=== PATIENT | male | born 1965 | race Caucasian/White ===

== ENCOUNTER 2023-03-18 07:32 | Inpatient (IN) | payer OTHER, SELFPAY ==
[2023-03-18] VITALS (54 sets, daily range): BP systolic 152–251; BP diastolic 93–164; PULSE 72–95; RESP 10–23; TEMP 36.9–37.4; O2SAT 92–100; BMI 24.7
--- NOTE | 2023-03-18 | ECHO_ITS ---
Patient Info Name: Anthony Bain Age: 57 years : 1965 Gender: Male Ht: 72 in Wt: 195 lbs BSA: 2.13 m2 HR: 87 bpm BP: 170 / 112 mmHg Technical Quality: Fair Exam Date: 03/18/2023 11:58 AM Exam Location: [facility] Pulmonary Exam Room: ICU7 Patient Status: Outpatient Admit Date: 03/18/2023 Staff Ordering Physician: Delonte Briseno MD Newspaper Vendor: Anabell Ca RDCS Attending Provider: Carlos Alston MD Exam Type: CA echo doppler color flow Study Info Indications - HYPERTENSIVE URGENCY Complete two-dimensional, color flow and Doppler transthoracic echocardiogram is performed. Summary 1. Complete two-dimensional, color flow and Doppler transthoracic echocardiogram is performed. 2. Left ventricular chamber dimension is normal. 3. Left ventricular systolic function is normal, estimated at 65-70%. 4. There is mild concentric increased left ventricular wall thickness. 5. The left ventricular diastolic function is grade I diastolic dysfunction. 6. E/e' 18 is elevated. 7. There is mild aortic valve sclerosis. 8. There is trace tricuspid valve regurgitation. 9. No pulmonary hypertension, estimated pulmonary arterial systolic pressure is 29 mmHg. 10. There is trace pulmonic regurgitation. Left Ventricle E/e' 18 is elevated. Left ventricular chamber dimension is normal. Left ventricular systolic function is normal, estimated at 65-70%. There is mild concentric increased left ventricular wall thickness. The left ventricular diastolic function is grade I diastolic dysfunction. Right Ventricle Right ventricular chamber dimension is normal. Right ventricular systolic function is normal. Left Atria Left atrial chamber dimension is normal. Right Atria Right atrial chamber dimension is normal. Aortic Valve The aortic valve is trileaflet. There is mild aortic valve sclerosis. There is no aortic valve stenosis. There is no aortic valve regurgitation. Pulmonic Valve There is trace pulmonic regurgitation. Mitral Valve There is no mitral valve stenosis. There is no mitral valve regurgitation. Tricuspid Valve There is trace tricuspid valve regurgitation. No pulmonary hypertension, estimated pulmonary arterial systolic pressure is 29 mmHg. Pericardium/Pleural There is no pericardial effusion. Inferior Vena Cava Normal inferior vena cava with >50% collapse upon inspiration consistent with normal right atrial pressure, 5 mmHg. Aorta The aortic root size at the sinus of Valsalva is normal. Left Ventricular Outflow Tract Name Value Normal LVOT 2D LVOT Diameter 2.2 cm LVOT Doppler LVOT Peak Gradient 8 mmHg LVOT Mean Gradient 4 mmHg LVOT VTI 22 cm LVOT VTI/AV VTI Ratio 0.7 LVOT Stroke Volume 81 ml LVOT CO 21.8 l/min LVOT CI 10.2 l/min/m2 Pulmonic Valve Name Value Normal PV Doppler
--- NOTE | ~2023-03-18 | CT_ITS ---
CT head without contrast Indication: Hypertension Technique: Serial scans were obtained through the brain without the administration of contrast. Dose reduction technique was used on this scan by utilizing automated exposure control and iterative recon struction technique. The dose-length product (DLP) was 681.00 mGy-cm. Findings: There is no evidence of intracranial hemorrhage, mass lesion, or acute infarct. The ventri cles and subarachnoid spaces are dilated, consistent with minimal atrophy. Low attenuation regions a re seen within the periventricular white matter bilaterally, likely representing changes from chronic microvascular ischemic disease. There is no evidence of edema, mass effect or midline shift. The v isualized paranasal sinuses and mastoid air cells are clear. Impression: No intracranial hemorrhage, mass, or acute infarct. Atrophy and chronic white matter changes, as above. Reviewed, dictated and finalized at location . Impression: No intracranial hemorrhage, mass, or acute infarct. Atrophy and chronic white matter changes, as above.
--- NOTE | ~2023-03-18 | US_ITS ---
EXAMINATION: US retroperitoneal duplex ltd DATE: 03/21/2023 15:06 INDICATION: Uncontrolled hypertension. TECHNIQUE: Multiple grayscale, color Doppler, and pulsed Doppler images of the kidneys and renal young ann were obtained. COMPARISON: CT abdomen and pelvis 04/29/2011 FINDINGS: The aorta peak systolic velocity is 85 cm/s. The right renal artery peak systolic velocity is 77 cm/s in the proximal segment, 90 cm/s in the mid segment, and 88 cm/s in the distal segment. The left rodrigo al artery peak systolic velocity is 75 cm/s in the proximal segment, 77 cm/s in the mid segment, and 40 cm/s in the distal segment. IMPRESSION: 1. No Doppler evidence of renal artery stenosis. Reviewed, dictated and finalized at location A.
--- NOTE | ~2023-03-18 | CT_ITS ---
EXAMINATION: CT brain wo con DATE: 03/20/2023 07:16 INDICATION: Code stroke TECHNIQUE: Computed tomography (CT) of the head was performed without intravenous contrast. Sagittal and coronal reconstructions were performed. The mA was adjusted according to patient size. Iterative reconstruction technique was employed. The dose-length product was 681.00 mGy-cm. COMPARISON: head CT dated 03/19/2023 FINDINGS: Continued evolution region of low attenuation cytotoxic edema along the left single gyrus consistent with acute infarct. No acute intracranial hemorrhage or abnormal extra axial fluid collection. There is additional moderate scattered white matter hypoattenuation consistent with chronic small vessel is chemic disease. Ventricles are normal and symmetric. No mass/mass effect. The orbits, paranasal sinus es and mastoid air cells are normal. IMPRESSION: 1. Continued evolution of an acute infarct in the left singlet gyrus. No other acute intracranial pro cess. Reviewed, dictated and finalized at location A. IMPRESSION: 1. Continued evolution of an acute infarct in the left singlet gyrus. No other acute intracranial process.
--- NOTE | ~2023-03-18 | MR_ITS ---
EXAMINATION: MR brain/brain stem wo con DATE: 03/18/2023 15:24 INDICATION: Cerebral vascular accident. TECHNIQUE: Magnetic resonance imaging (MRI) of the brain and brainstem was performed without intraven ous contrast. COMPARISON: Head CT 03/18/2023 FINDINGS: There is an acute infarct involving the left cingulate gyrus. There is scattered foci of ol d microhemorrhage in the cerebrum including the deep tran nuclei. There are scattered areas of nonspe cific increased T2-weighted signal intensity in the cerebral and cerebellar white matter. There is no abnormal mass lesion. The ventricles are normal in size. The orbits are normal. The mastoid air cell s are normal. The paranasal sinuses are clear. IMPRESSION: 1. Acute infarct involving the left cingulate gyrus. 2. Extensive cerebral white matter disease, mild cerebellar white matter disease, and scattered foci of old microhemorrhage in the brain, consistent with chronic hypertensive encephalopathy. Reviewed, dictated and finalized at location E. IMPRESSION: 1. Acute infarct involving the left cingulate gyrus. 2. Extensive cerebral white matter disease, mild cerebellar white matter diseas e, and scattered foci of old microhemorrhage in the brain, consistent with photographer's model neto hypertensive encephalopathy.
--- NOTE | ~2023-03-18 | XR_ITS ---
EXAMINATION: XR chest 1V portable INDICATION: Hypertension TECHNIQUE: Portable AP chest at 0807 hours COMPARISON: None available FINDINGS: The lungs are free of acute opacities. No pleural effusion or pneumothorax. The cardiomedia stinal silhouette is normal. IMPRESSION: 1. No acute cardiopulmonary abnormality. Reviewed, dictated and finalized at location B.
--- NOTE | ~2023-03-18 | US_ITS ---
EXAMINATION: US carotid duplex BI DATE: 03/19/2023 09:29 INDICATION: Stroke. Vertigo. TECHNIQUE: Grayscale, color Doppler, and pulsed Doppler images of the cervical carotid arteries were obtained. The degree of vessel stenosis is placed in one of the following categories: normal, <50%, 5 0-69%, >=70% but less than near-occlusion, near-occlusion, or total occlusion. Note that percent sten osis relative to normal distal artery lumen diameter is indirectly measured from velocity measurement s as described by Margarito, et al. Radiology 2003; 229:340-346. COMPARISON: None. FINDINGS: RIGHT: The right common carotid artery (CCA) peak systolic velocity (PSV) is 97 cm/s. The right internal car otid artery (ICA) PSV is 60 cm/s. The right ICA end-diastolic velocity (EDV) is 20 cm/s. The right IC A/CCA PSV ratio is 0.6. Grayscale and color Doppler images yield an estimate of <50% diameter reducti on from plaque in the ICA. The external carotid artery (ECA) PSV is 74 cm/s. There is antegrade flow in the right vertebral artery. LEFT: The left CCA PSV is 122 cm/s. The left ICA PSV is 70 cm/s. The left ICA EDV is 27 cm/s. The left ICA/ CCA PSV ratio is 0.6. Grayscale and color Doppler images yield an estimate of <50% diameter reduction from plaque in the ICA. The ECA PSV is 90 cm/s. There is antegrade flow in the left vertebral artery . IMPRESSION: 1. <50% stenosis in the right internal carotid artery. 2. <50% stenosis in the left internal carotid artery. Reviewed, dictated and finalized at location A.
--- NOTE | ~2023-03-18 | CT_ITS ---
EXAMINATION: CTA BRAIN/CAROTID DATE: 03/19/2023 15:52 INDICATION: Acute stroke TECHNIQUE: Computed tomographic angiography (CTA) of the head and neck was performed with 100 mL Omni paque-350 intravenous contrast. Multiplanar reconstructions and maximum intensity projection 3D-recon structions of the carotid arteries and of the intracranial arteries were created by the technologist on a separate workstation. Precontrast CT of the head was also obtained. Automated exposure control and iterative reconstruction technique were employed.The dose-length product was 1816.95 mGy-cm. COMPARISON: Head CT and brain MR dated 03/18/2023 FINDINGS: Head: Again seen is a region of cytotoxic edema associated with the previous noted region of restricted dif fusion at the left single gyrus consistent with acute infarct. No acute intracranial hemorrhage or ab normal extra axial fluid collection. There is additional moderate scattered white matter hypoattenuat ion consistent with chronic small vessel ischemic disease. Ventricles are normal and symmetric. No ma ss/mass effect. No abnormally enhancing brain lesions on postcontrast imaging. The orbits, paranasal sinuses and mastoid air cells are normal. Intracranial arteries No hemodynamically significant stenosis in the basilar and internal carotid arteries. Vertebral arter ies are codominant. Both A1 and P1 segments are patent. There is scattered mild atherosclerotic plaqu e with <50% stenosis at the left vertebral artery and a couple locations at the bilateral anterior, m iddle and posterior cerebral arteries. There are no aneurysms identified. Cerebral arterial arboriza tion appears symmetric. Carotid arteries: Normal caliber of the visualized aortic arch with no dissection or hemodynamically significant athero sclerotic plaque. Bovine Aortic arch with common origin of the innominate and left carotid arteries, a normal anatomic variant. Atherosclerotic plaque without hemodynamically significant stenosis at the proximal left subclavian artery. There is atherosclerotic plaque with 0% stenosis of both the right and left carotid bulbs relative to normal distal artery lumen diameter (NASCET criteria). There is mo derate, 60% stenosis at the origin of the right vertebral artery. IMPRESSION: 1. Acute infarct in the left cingulate gyrus. 2. Small amount of atherosclerotic plaque with 0% stenosis of the right and left carotid bulbs relati ve to normal distal artery lumen diameter (NASCET criteria). 3. Scattered small regions of mild nonhemodynamically significant atherosclerotic disease in the cere bral arteries with no stenosis of greater than 50%. Reviewed, dictated and finalized at location A. IMPRESSION: 1. Acute infarct in the left cingulate gyrus. 2. Small amount of atherosclerotic plaque with 0% stenosis of the right and lef t carotid bulbs relative to normal distal artery lumen diameter (NASCET criteri a). 3. Scattered small regions of mild nonhemodynamically significant atherosclerot ic disease in the cerebral arteries with no stenosis of greater than 50%.
--- NOTE | 2023-03-18 07:48 | ECG_ITS ---
Measurements Intervals [place] Rate: 81 P: 19 [place]: 183 QRS: -10 QRSD: 95 T: 69 QT: 340 QTc: 395 Interpretive Statements SINUS RHYTHM CANNOT RULE OUT SEPTAL MYOCARDIAL INFARCTION , OF INDETERMINATE AGE [40+ ms Q WAVE IN V1/V2] NO PREVIOUS ECG AVAILABLE FOR COMPARISON Electronically Signed On 03-18-2023 11:03:47 CDT by Sue Moralez M.D.
--- NOTE | 2023-03-18 07:49 | ED.GENADULT ---
HPI - General Adult General Chief complaint: Recheck/Abnormal Lab/Rx Stated complaint: high blood pressure Time Seen by Provider: 03/18/23 07:35 History of Present Illness HPI narrative: 57-year-old male with untreated hypertension presented to the emergency department for evaluation of elevated blood pressure. Patient states he had previously been on blood pressure medications years ago but had lost weight and stopped taking meds. Patient states he does not have frequent follow-up with his primary care physician has not been taking medications for blood pressure. Patient states he rarely checks his blood pressure but states that it typically runs over 180 systolic. Patient states that over the last few days he has been feeling poorly, he states he has had some increased fogginess and increased generalized weakness. Patient checked his blood pressure and was found to be over 200. Upon arrival to the ED patient's blood pressure is 251/160. Patient denies any associated chest pain or shortness of breath. Patient denies any associated nausea vomiting or diarrhea. Patient denies any prior history of [place] and denies any prior history of CVA. Related Data Home Medications Medication Instructions Recorded Confirmed No Home Medications 03/18/23 03/18/23 Allergies Allergy/AdvReac Type Severity Reaction Status Date / Time No Known Allergies Allergy Unverified 06/16/16 09:47 Review of Systems Review of Systems: All systems reviewed & are unremarkable except as noted in HPI and below [facility] Past Medical History Medical History (Updated 03/18/23 @ 18:05 by Trevor Rosa MD) Hypertension Kidney stones Surgical History Surgical History (Updated 03/18/23 @ 13:34 by Jennifer Doan PA-C) History of tonsillectomy (1969) Family History Family History Mother Family history of cardiovascular disease Social History Social History (Updated 03/18/23 @ 13:34 by Jennifer Doan PA-C) Social History: Surrogate medical decision maker: Virgen Bain, spouse. Code status: Full code. Smoking status: Never smoker Second hand tobacco smoke exposure: No Alcohol intake: current Drinks per week: 2 Alcohol use details: Beer on the weekends. Substance use: never Lack of Transportation: No Lack of Food: Never True Current Housing: I Have Housing Concerned About Future Housing: No Difficulty Paying Gas/Electric Bills: No Difficulty Paying for Meds: No Currently Unemployed: No Education: Bachelor's Degree Difficulty w/ Childcare or Family Care: No Additional living arrangements comments: Lives in [place] with spouse. Spiritual care concerns: No Exam Narrative: APPEARANCE: Well appearing, no pain, no distress, well-nourished. HEAD: normocephalic, atraumatic. EYES: PERRLA/EOMI, conjunctivae clear. NOSE: Normal no drainage NECK: Supple. No adenopathy, no masses. RESPIRATORY: Airway patent, respirations nonlabored. Clear to auscultation bilaterally, no rales, rhonchi, wheezing. CARDIOVASCULAR: Regular rate and rhythm without murmurs rubs or gallops. ABDOMINAL: Soft, nontender, nondistended, normal bowel sounds MUSCULOSKELETAL: Moves all extremities. Strength/ROM intact, No edema, No calf tenderness. NEURO: Alert. Cranial nerves II through XII intact. Grossly intact SKIN: Warm, dry. Normal Color Course Course Emergency Course: 57-year-old male presenting with hypertension. Patient's blood pressure was 250/160. Patient will be started on a Cardene drip with target blood pressure of [address] and cardiac work-up will also be ordered. Patient family are updated on the plan for work-up. All questions and concerns were addressed. Case discussed with Dr. Briseno the sanitation truck driver and patient was accepted to the ICU. Case was discussed with the hospitalist and they accepted the patient for admission. Patient
--- NOTE | 2023-03-18 08:07 | PC.NURSE ---
Radiology at bedside to obtain CXR.
[2023-03-18] MEDS: ASPIRIN 81 MG CHEWABLE TABLET 324 MG PO (08:11)
[2023-03-18] MEDS: niCARdipine 20 MG/200 ML 20 MG/200 ML BAG 50 MG IV CONT (08:12)
[2023-03-18 08:21] LABS: Basophils Absolute Auto 0.1 K/mm3 (0.0-0.1); Basophils Percent Auto 0.8 % (0.2-1.2); Eosinophils Absolute Auto 0.2 K/mm3 (0-0.3); Eosinophils Percent Auto 2.6 % (0-4.4); Hematocrit 51.4 % (42.0-52.0); Hemoglobin 17.7 g/dL (14.0-18.0); Immature Granulocyte Absolute 0.01 K/mm3 (0.00-0.031); Immature Granulocyte Percent A 0.2 % (0-0.5); Lymphocytes Absolute Auto 1.23 K/mm3 (0.9-3.2); Lymphocytes Percent Auto 19.8 % (18.3-44.2); Mean Corpuscular HGB Conc 34.4 g/dl (32-36); Mean Corpuscular Hemoglobin 31.2 pg (26-34); Mean Corpuscular Volume 90.5 fl (80-100); Mean Platelet Volume 9.1 fl (7.4-10.4); Monocytes Absolute Auto 0.6 K/mm3 (0.1-0.6); Monocytes Percent Auto 9.3 % (2.6-8.5); Neutrophils Absolute Auto 4.2 K/mm3 (1.3-6.7); Neutrophils Percent Auto 67.3 % (45.5-73.1); Platelet Count Result 226 k/mm3 (150-375); Red Blood Count 5.68 M/mm3 (4.6-6.20); Red Cell Distribution Width 12.2 % (11.5-14.5); White Blood Count 6.2 K/mm3 (4.5-10.0)
[2023-03-18 08:31] LABS: Prothrombin Time 13.1 Seconds (11.1-14.7)
[2023-03-18 08:32] LABS: Partial Thromboplastin Time 30.8 SECONDS (22.3-36.8)
[2023-03-18 08:40] LABS: Alanine Aminotransferase 28 U/L (6-50); Albumin Level 5.1 g/dL (3.5-5.1); Alkaline Phosphatase 51 U/L (38-126); Anion Gap 8 mmol/L (8-16); Aspartate Amino Transferase 25 U/L (17-59); Bilirubin,Total 0.8 mg/dL (0.2-1.3); Blood Urea Nitrogen 14 mg/dL (9-20); Calcium 9.4 mg/dL (8.4-10.2); Carbon Dioxide 33 mmol/L (22-30); Chloride 99 mmol/L (98-107); Estimated CRCL calculation 77 ml/min; Estimated Glomerular Filt Rate > 60; Glucose 111 mg/dL (65-110); Potassium 4.1 mmol/L (3.4-5.0); Sodium 140 mmol/L (137-145)
[2023-03-18 08:52] LABS: NT Pro B Type Natriuretic Pept 466 pg/mL (19.9-100); Troponin I 0.016 ng/mL (0.000-0.034)
[2023-03-18 09:29] LABS: Appearance Urine Cloudy (Clear); Bacteria Urine None Seen /hpf; Bilirubin Urine Negative (Negative); Blood Urine Negative (Negative); Color Urine Yellow (Yellow); Glucose Urine UA Negative (Negative); Ketones Urine Negative (Negative); Leukocyte Esterase Ur Negative LEU/UL (Negative); Nitrate Urine Negative (Negative); Non Pathogenic Casts 0-2; Protein Urine Negative (Negative); RBC Urine 0-2 /hpf (0-2); Specific Grav Ur 1.007 (1.001-1.035); Squamous Epithelial Cell Urine None seen /hpf (Few); Urobilinogen Urine 0.2 mg/dL (<2.0); WBC Urine 0-5 /hpf
[2023-03-18 09:48] LABS: Add Urine Microscopic? YES
--- NOTE | 2023-03-18 10:31 | ADMGEN ---
This patient, Anthony Bain, was admitted to Intensive Care Unit-7. Patient/family oriented to hospital policies and general routines including ID bracelet, bed and alarms, visiting hours, pain management, procedures, bathroom and other care routines, personal items, smoking policy, room service/diet, and visiting hours. Information on how to activate the Rapid Response Team has been discussed. Patient/Family are encouraged to report perceived risks to care and to ask questions if they do not understand what they are told or what they should do.
--- NOTE | 2023-03-18 10:59 | WPDCNINT ---
Assessment and Plan Assessment and plan (1) Hypertensive emergency: Code(s): I16.1 - Hypertensive emergency Status: Acute Assessment and Plan: Patient was started on nicardipine infusion in the ED which will be continued Start p.o. lisinopril and Norvasc Will target blood pressure systolic close to 180 over next 24 hours P.r.n. labetalol Will try to wean off nicardipine infusion Serial troponin EKG reviewed Check echocardiogram (2) Slurring of speech: Code(s): R47.81 - Slurred speech Status: Acute Assessment and Plan: ?TIA versus CVA CT head shows chronic white matter changes Check MRI Aspirin Check lipid profile (3) Elevated brain natriuretic peptide (BNP) level: Code(s): R79.89 - Other specified abnormal findings of blood chemistry Status: Acute Assessment and Plan: Chest x-ray clear. No edema legs Check echocardiogram Plan DVT prophylaxis -SCDs Stress ulcer prophylaxis - Nutrition -heart healthy diet Code Status - Full Code Patient and his updated and I answered all their questions Total Critical Care Time - 35 minutes Due to a high probability of clinically significant, life threatening deterioration, the patient required my highest level of preparedness to intervene emergently and I personally spent this critical care time directly and personally managing the patient. This critical care time included obtaining a history; examining the patient; pulse oximetry; ordering and review of studies; arranging urgent treatment with development of a management plan; evaluation of patient's response to treatment; frequent reassessment; and discussions with other providers. It was exclusive of separately billable procedures and treating other patients and teaching time. Please see Assessment and Plan section and the rest of the note for further information on patient assessment and treatment Usability Engineer Consult Note Consult date: 03/18/23 Reason for consult: Hypertensive emergency HPI: Anthony Bain is a 57 year old male with past medical history of hypertension but currently not on treatment presented with chief complaint of high blood pressure. Patient has history of hypertension but quit taking medications 10 years ago stating that his blood pressure improved after he lost his weight. He has not seen any physician in many years and has not had his blood pressure checked for many years. Today he was feeling weak tired and checked his blood pressure at home and was systolic 235 which made him come to the hospital. He denies any complaints at this time but states that he has some headache he blames on not drinking caffeine today. He states the headache is only 2/10 frontal no radiation. He denies any nausea vomiting chest pain shortness of breath dizziness lightheadedness blurred vision. He states he drinks 2 cups of coffee in the morning and 1 in the afternoon. He drinks [address] Cancino every day. Denies any smoking drug use. 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 His states the patient had slurring of speech yesterday which has resolved at this time. Patient denies any weakness or paresthesia in any particular extremity but feels generalized weak. All other systems were reviewed and were negative In ED patient was found to be having high blood pressure with systolic blood pressure 251. He was started on nicardipine infusion and admitted to ICU Review of Systems Review of Systems: All systems reviewed & are unremarkable except as noted in HPI and below (HPI) [facility] Past Medical History Medical History (Updated 03/18/23 @ 11:30 by Delonte Briseno MD) Essential (primary) hypertension Family History Family History (Updated 10/16/18 @ 15:18 by DOCTOR UNKNOWN) Mother Family history of cardiovascular disease Social History Social History (Updated 03/18/23 @ 11:29 by Delonte Briseno MD) Social History: Drinks beer on the weekend, denies any other drug use Smok
[2023-03-18 11:12] LABS: Troponin I 0.017 ng/mL (0.000-0.034)
[2023-03-18] MEDS: lisinopriL 20 MG TABLET PO (11:51)
[2023-03-18] MEDS: amLODIPine BESYLATE 5 MG TABLET PO (11:52)
[2023-03-18] MEDS: ACETAMINOPHEN 325 MG TABLET 650 MG PO ×2 (12:38→20:07)
[2023-03-18] MEDS: LABETALOL HCL INJ 100 MG/20 ML VIAL 20 MG IV PUSH (13:20)
--- NOTE | 2023-03-18 13:31 | PM.IMHP ---
H&P: HPI History of Present Illness Date/Time: 03/18/23 14:00 Chief Complaint: Elevated blood pressure. Narrative: This is a very pleasant 57-year-old male with hypertension who presented to the emergency department via private vehicle from home for evaluation of high blood pressure. The patient provides the following history. He has been on medications for his blood pressures over the years but he lost over 50 lb stop taking the medications. He admits he does not have frequent follow-up with his doctor and he does not check his blood pressures often. The last several days he has not been feeling very well with generalized weakness and occasional confusion/fogginess. Since yesterday he has had occasional speech disturbance, perhaps mildly slurred or at times he feels as though he cannot get the words out that he wants to say. He checked his blood pressure this morning and reports that it was over 200 systolic and he came in for evaluation. On arrival to triage his blood pressure was 251/160 and he was started on a nicardipine drip and has been admitted to the ICU. Brain CT showed no acute abnormalities however brain MRI showed acute infarct involving the left cingulate gyrus in addition to extensive cerebral white matter disease, mild cerebellar white matter disease, scattered foci of old microhemorrhage in the brain consistent with chronic hypertensive encephalopathy. He denies vertigo, visual changes, difficulty swallowing, focal weakness, and paresthesias. He has no palpitations or sensations of racing heart. He also denies exertional chest pain, shortness a breath, paroxysmal nocturnal dyspnea, and lower extremity edema. Review of Systems Review of Systems: Twelve systems were reviewed and are negative except for as per HPI. [facility] Past Medical History Medical History Hypertension Kidney stones Surgical History Surgical History History of tonsillectomy (1969) Family History Family History Mother Family history of cardiovascular disease Social History Social History (Updated 03/18/23 @ 22:09 by Jennifer Doan PA-C) Social History: Surrogate medical decision maker: Virgen Bain, spouse. Code status: Full code. Smoking status: Never smoker Second hand tobacco smoke exposure: No Alcohol intake: current Drinks per week: 2 Alcohol use details: Beer on the weekends. Substance use: never Lack of Transportation: No Lack of Food: Never True Current Housing: I Have Housing Concerned About Future Housing: No Difficulty Paying Gas/Electric Bills: No Difficulty Paying for Meds: No Currently Unemployed: No Education: Bachelor's Degree Difficulty w/ Childcare or Family Care: No Additional living arrangements comments: Lives in [place] with spouse. 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 Spiritual care concerns: No Meds Home Medications and Allergies Home Medications Medication Instructions Recorded Confirmed Type No Home Medications 03/18/23 03/18/23 History Allergies Allergy/AdvReac Type Severity Reaction Status Date / Time No Known Allergies Allergy Unverified 06/16/16 09:47 Vital Signs Vital Signs - 24 hr 03/18/23 07:37 03/18/23 08:12 03/18/23 08:10 Temperature Pulse Rate 83 80 79 Respiratory Rate 16 16 Blood Pressure 251/164 H 238/142 H Pulse Oximetry 99 100 Oxygen Delivery Room Air 03/18/23 08:12 03/18/23 08:15 03/18/23 08:16 Temperature Pulse Rate 87 76 73 Respiratory Rate 14 20 16 Blood Pressure 238/142 H 232/143 H Pulse Oximetry 98 98 97 Oxygen Delivery 03/18/23 08:21 03/18/23 08:22 03/18/23 08:26 Temperature Pulse Rate 78 82 81 Respiratory Rate 15 16 18 Blood Pressure 213/121 H 200/114 H Pulse Oximetry 97 97 97 O
--- NOTE | 2023-03-18 15:51 | PC.NURSE ---
MRI shows acute infarct. Dr. Briseno made aware. New orders noted for neurology consult. Message left with KOKO Rodriguez requesting results to be discussed with pt.
[2023-03-19] VITALS (20 sets, daily range): BP systolic 152–219; BP diastolic 88–128; PULSE 56–79; RESP 12–20; TEMP 36.5–37.1; O2SAT 96–99
--- NOTE | 2023-03-19 | ECHO_ITS ---
Patient Info Name: Anthony Bain Age: 57 years : 1965 Gender: Male Ht: 72 in Wt: 178 lbs BSA: 2.03 m2 HR: 66 bpm BP: 190 / 117 mmHg Technical Quality: Good Exam Date: 03/19/2023 2:15 PM Exam Location: [facility] Pulmonary Exam Room: 301 Patient Status: Inpatient Admit Date: 03/19/2023 Staff Ordering Physician: Regi Torres MD Scoop Machine Operator: Anabell Ca RDCS Attending Provider: Carlos Alston MD Exam Type: CA echo limited w bubble study Study Info Indications - acute stroke Limited two-dimensional transthoracic echocardiogram is performed with agitated saline. Contrast/Agitated Saline Contrast/Ag. Saline: Agitated Saline Amount: 20.00 ml Existing IV Access: Yes IV Access Condition: patent with no signs of infiltration Summary 1. Limited study for bubble study only. 2. Intact interatrial septum visualized by agitated saline imaging. Negative bubble study. Atrial Septum Intact interatrial septum visualized by agitated saline imaging. Negative bubble study. Report Signatures
[2023-03-19] MEDS: LABETALOL HCL INJ 100 MG/20 ML VIAL 20 MG IV PUSH ×3 (02:40→23:18)
[2023-03-19 05:24] LABS: Hematocrit 49.8 % (42.0-52.0); Hemoglobin 17.1 g/dL (14.0-18.0); Mean Corpuscular HGB Conc 34.3 g/dl (32-36); Mean Corpuscular Hemoglobin 31.5 pg (26-34); Mean Corpuscular Volume 91.9 fl (80-100); Mean Platelet Volume 9.1 fl (7.4-10.4); Platelet Count Result 226 k/mm3 (150-375); Red Blood Count 5.42 M/mm3 (4.6-6.20); Red Cell Distribution Width 12.3 % (11.5-14.5); White Blood Count 7.4 K/mm3 (4.5-10.0)
[2023-03-19 05:34] LABS: Alanine Aminotransferase 24 U/L (6-50); Albumin Level 4.7 g/dL (3.5-5.1); Alkaline Phosphatase 47 U/L (38-126); Anion Gap 6 mmol/L (8-16); Aspartate Amino Transferase 22 U/L (17-59); Bilirubin,Total 0.8 mg/dL (0.2-1.3); Blood Urea Nitrogen 13 mg/dL (9-20); Calcium 9.1 mg/dL (8.4-10.2); Carbon Dioxide 33 mmol/L (22-30); Chloride 100 mmol/L (98-107); Cholesterol 196 mg/dL (0-200); Estimated CRCL calculation 77 ml/min; Estimated Glomerular Filt Rate > 60; Glucose 102 mg/dL (65-110); HDL Direct 43 mg/dL; Magnesium 2.5 mg/dL (1.6-2.3); Potassium 3.8 mmol/L (3.4-5.0); Sodium 139 mmol/L (137-145); Triglycerides 132 mg/dL (<150)
[2023-03-19 05:44] LABS: LDL Cholesterol Direct 115 mg/dL
[2023-03-19] MEDS: ATORVASTATIN 40 MG TABLET PO (08:41)
[2023-03-19] MEDS: ASPIRIN 325 MG ENTERIC TABLET PO (08:42)
[2023-03-19] MEDS: amLODIPine BESYLATE 5 MG TABLET 10 MG PO (08:42)
[2023-03-19] MEDS: lisinopriL 20 MG TABLET 40 MG PO (08:42)
--- NOTE | 2023-03-19 09:33 | WPDINTPN ---
Progress Note: A&P Assessment and Plan (1) Hypertensive emergency: Code(s): I16.1 - Hypertensive emergency Status: Acute Assessment and Plan: Patient was started on nicardipine infusion in the ED which has now been weaned off Continue p.o. lisinopril and Norvasc and increase dose to keep systolic below 180 without p.r.n. medications Continue P.r.n. labetalol to keep systolic blood pressure below 180 for now Serial troponin were negative EKG reviewed (2) Cerebrovascular accident: Code(s): I63.9 - Cerebral infarction, unspecified Status: Acute Assessment and Plan: Stroke was suspected upon initial history and MRI was ordered MRI brain showed IMPRESSION: 1. Acute infarct involving the left cingulate gyrus. 2. Extensive cerebral white matter disease, mild cerebellar white matter disease, and scattered foci of old microhemorrhage in the brain, consistent with chronic hypertensive encephalopathy. -consult neurology -blood pressure control -add statin -echo as below -PT OT ST consult -carotid Dopplers -EKG and echo shows no AFib -aspirin (3) Elevated brain natriuretic peptide (BNP) level: Code(s): R79.89 - Other specified abnormal findings of blood chemistry Status: Acute Assessment and Plan: Chest x-ray clear. No edema in legs Echo shows diastolic dysfunction likely secondary to uncontrolled hypertension Summary ? 1. Complete two-dimensional, color flow and Doppler transthoracic echocardiogram is performed. ? 2. Left ventricular chamber dimension is normal. ? 3. Left ventricular systolic function is normal, estimated at 65-70%. ? 4. There is mild concentric increased left ventricular wall thickness. ? 5. The left ventricular diastolic function is grade I diastolic dysfunction. ? 6. E/e' 18 is elevated. ? 7. There is mild aortic valve sclerosis. ? 8. There is trace tricuspid valve regurgitation. ? 9. No pulmonary hypertension, estimated pulmonary arterial systolic pressure is 29 mmHg. ? 10. There is trace pulmonic regurgitation. (4) Hypertensive encephalopathy: Code(s): I67.4 - Hypertensive encephalopathy Status: Acute Assessment and Plan: See above Plan DVT prophylaxis -SCDs Nutrition -heart healthy diet Code Status - Full Code Patient and his updated and I answered all their questions Transfer out of ICU today Subjective Date/time seen: 03/19/23 Patient states he feels today as compared to yesterday and denies any specific complaints. He denies any headache this morning dizziness or blurring of vision. Patient denies fever, chest pain, shortness of breath, cough, nausea vomiting, abdominal pain,, diarrhea, headache or constipation. All other systems were reviewed and negative His blood pressure improved on p.o. medication and cardia pain was weaned of. Blood pressure was elevated and night and requiring p.r.n. labetalol Review of Systems Review of Systems: All systems reviewed & are unremarkable except as noted in HPI and below (HPI) Exam Narrative: General: Pt is alert awake and in NAD Lungs/Chest: Trachea central Clear BS B/L, No crackles or wheezing. Cardiac: RRR. Normal S1 S2. No murmurs Circulation: Pedal pulses are intact and symmetrical. Abdomen: Normal bowel sounds.. Soft. NT. ND. Extremities: No clubbing, cyanosis or edema. Warm : Siu in place Neurologic: Follows commands. Moves all 4 extremities PERRL AO x3, cranial nerves 2-12 intact, muscle strength is essentially symmetric 5/5 bilaterally, it appears slightly weaker on the left side with patient states that he does not feel weak at all, sensation to touch intact, speech normal Skin: No Rash Objective Data Vital Signs Vital Signs: Vital Signs - 24 hr 03/18/23 09:36 03/18/23 09:41 03/18/23 09:42 Temperature Pulse Rate 86 82 84 Respiratory Rate 18 19 21 H Blood Pressure 170/110 H 171/110 H Pulse Oximetry 97 97 96 03/18/23 09:45 03/18/23
--- NOTE | 2023-03-19 10:23 | WPDNEURCNPN ---
Assessment and Plan Assessment and plan (1) Hypertensive encephalopathy: Code(s): I67.4 - Hypertensive encephalopathy Status: Acute (2) Cerebrovascular accident: Code(s): I63.9 - Cerebral infarction, unspecified Status: Acute (3) Hyperlipidemia: Code(s): E78.5 - Hyperlipidemia, unspecified Status: Acute Plan Anthony Bain is a 57 year old male with a history of hypertension who presented to the hospital due to generalized weakness and confusion in the setting of hypertensive emergency. He was found to have acute stroke in the left cingulate gyrus. Likely secondary to uncontrolled hypertension. - Obtain CTA brain/carotid and surface echocardiogram - Start Aspirin 81mg daily and Plavix 75mg daily x 3 weeks, then aspirin monotherapy - Start Lipitor 40mg daily Consult date: 03/19/23 Reason for consult: Acute infarct HPI: Anthony Bain is a 57 year old male with a history of hypertension who presented to the hospital due to generalized weakness and confusion. On the day prior to presentation, patient developed slurrying of the speech and some word finding difficulties. He checked his blood pressure the following morning and it was in the 200s systolic. He presented to [place] ED for evaluation. His blood pressure in triage was 251/160. He was started on nicardipine drip and admitted to the ICU. CT head showed abnormalities but MRI brain showed acute infarct in the left cingulate gyrus. Patient does not currently take any medications and does not have regular follow-up with his PCP. He had previously been on antihypertensives in the past, but is not currently on any. His LDL from this admission is 115. His blood pressure earlier today ranged between 150s-210s systolic. He was taking a daily baby aspirin prior to this admission. Other than having generalized weakness and brain fog, he denies any speech or vision changes, focal weakness or numbness. Review of Systems Constitutional: Constitutional: Denies chills, Reports fatigue, Denies fever(s), Reports weakness and Denies weight loss Eyes: Eyes: Denies diplopia and Denies loss of vision ENT: Denies dizziness, Denies hearing loss and Denies tinnitus Cardiovascular: Cardiovascular: Denies chest pain, Denies syncope and Denies dyspnea Respiratory: Respiratory: Denies cough, Denies dyspnea and Denies wheezing Gastrointestinal: Gastrointestinal: Denies abdominal pain, Reports constipation and Denies vomiting Genitourinary: Genitourinary: Denies urinary incontinence Musculoskeletal: Musculoskeletal: Denies arthralgias and Denies joint swelling Integumentary/Breasts: Skin/Breast: Denies new lesions and Denies rash Neurologic: Reports as per HPI, Denies dizziness, Denies syncope and Denies loss of vision Psychiatric: Psychiatric: Denies anxiety and Denies depression Endocrine: Endocrine: Denies cold intolerance and Denies heat intolerance Hematologic/Lymphatic: Hematologic/Lymphatic: Denies easy bleeding and Denies easy bruising Allergic/Immunologic: Allergic/Immunologic: Denies no additional allergic/immunologic complaints and Denies wheezing PMFSH Past Medical History Medical History Hypertension Kidney stones Surgical History Surgical History History of tonsillectomy (1969) Family History Family History Mother Family history of cardiovascular disease Social History Social History Social History: Surrogate medical decision maker: Virgen Bain, spouse. Code status: Full code. Smoking status: Never smoker Second hand tobacco smoke exposure: No Alcohol intake: current Drinks per week: 2 Alcohol use details: Beer on the weekends. Substance use: never Lack of Transportation: No Lack of Food: Never True C
--- NOTE | 2023-03-19 11:21 | PCSTNOTE ---
Bedside swallowing evaluation. Patient and spouse who is present report no swallowing difficulty. Trials of water by straw and solids (grape) by fingers. Patient presented with chewing and swallowing function within normal limits. No signs of gagging, aspiration, or choking. Please note that silent aspiration cannot be ruled out at bedside. However, this patient did not demonstrate any signs of aspiration during this evaluation. Language comprehension and expression were evaluated, and found to be within normal limits. Reading assessment indicates reading ability is functional. Writing not evaluated. Thank you for the referral of this patient.
--- NOTE | 2023-03-19 11:30 | PM.IMPN ---
Progress Note: A&P Assessment and Plan (1) Hypertensive emergency: Code(s): I16.1 - Hypertensive emergency Status: Acute Assessment and Plan: Patient was started on nicardipine infusion in the ED which was weaned off Continue p.o. lisinopril and Norvasc and increase dose to keep systolic below 180 without p.r.n. medications 03/19 BP 178/104, avoiding overtreatment after acute stroke, transfer to medical floor per office nurse (2) Cerebrovascular accident: Code(s): I63.9 - Cerebral infarction, unspecified Status: Acute Assessment and Plan: Stroke was suspected upon initial history and MRI was ordered MRI brain showed IMPRESSION: 1. Acute infarct involving the left cingulate gyrus. 2. Extensive cerebral white matter disease, mild cerebellar white matter disease, and scattered foci of old microhemorrhage in the brain, consistent with chronic hypertensive encephalopathy. Continue ASA and statin (3) Elevated brain natriuretic peptide (BNP) level: Code(s): R79.89 - Other specified abnormal findings of blood chemistry Status: Acute Assessment and Plan: Chest x-ray clear. No edema in legs Echo shows diastolic dysfunction likely secondary to uncontrolled hypertension Summary ? 1. Complete two-dimensional, color flow and Doppler transthoracic echocardiogram is performed. ? 2. Left ventricular chamber dimension is normal. ? 3. Left ventricular systolic function is normal, estimated at 65-70%. ? 4. There is mild concentric increased left ventricular wall thickness. ? 5. The left ventricular diastolic function is grade I diastolic dysfunction. ? 6. E/e' 18 is elevated. ? 7. There is mild aortic valve sclerosis. ? 8. There is trace tricuspid valve regurgitation. ? 9. No pulmonary hypertension, estimated pulmonary arterial systolic pressure is 29 mmHg. ? 10. There is trace pulmonic regurgitation. (4) Hypertensive encephalopathy: Code(s): I67.4 - Hypertensive encephalopathy Status: Acute Assessment and Plan: 03/18 resolved Plan DVT prophylaxis -SCDs Subjective Date/time seen: 03/19/23 11:30 Interval history: Mr. Bain was admitted for with acute stroke and hypertensive urgency. He has slurred speech initially but this has resolved. Denied any other focal weakness. He denied chest pain or shortness of breath heart palpitations dizziness syncope or presyncope. He denied any GI or issues or abnormal bleeding. He did not receive thrombolysis due to the length of time from onset of symptoms to presentation and also due to elevated blood pressure. Review of Systems Review of Systems: All systems reviewed & are unremarkable except as noted in HPI and below Exam Narrative: General: Pt is alert awake and in NAD, A&O x 3 Neck No JVD Lungs/Chest: Trachea central Clear BS B/L, No crackles or wheezing. Cardiac: RRR. Normal S1 S2. No murmurs Circulation: Pedal pulses are intact and symmetrical. Abdomen: Normal bowel sounds.. Soft. NT. ND. Extremities: No clubbing, cyanosis or edema. Warm : Siu in place Neurologic: CN symmetric to visual inspection. Follows commands. Moves all 4 extremities PERRL AO x3, cranial nerves 2-12 intact, muscle strength is essentially symmetric 5/5 bilaterally, speech normal Skin: No Rash Objective Data Vital Signs Vital Signs: Vital Signs - 24 hr 03/18/23 13:20 03/18/23 12:00 03/18/23 13:46 Temperature 99.3 F Pulse Rate 93 86 Respiratory Rate Blood Pressure 155/107 H Pulse Oximetry 03/18/23 12:00 03/18/23 14:00 03/18/23 14:00 Temperature Pulse Rate 93 74 72 Respiratory Rate 16 Blood Pressure 163/110 H Pulse Oximetry 98 03/18/23 16:00 03/18/23 18:00 03/18/23 16:00 Temperature 98.5 F Pulse Rate 80 83 74 Respiratory Rate 17 Blood Pressure 172/114 H Pulse Oximetry 99 03/18/23 18:00 03/18/23 20:00 03/18/23 20:00 Temperature 98.6 F Pulse Rate 79 74 74 Respiratory Ra
--- NOTE | 2023-03-19 13:26 | PC.NURSE ---
Report given to STALIN Cheng with 3 med-surg. All questions answered and plan of care reviewed. Patient to go to Med-surg room 301.
--- NOTE | 2023-03-19 14:48 | PC.NURSE ---
This patient, Anthony Bain, was received from ICU on 03/19/23 at 1350. Patient/family oriented to unit policies and routines. PT alert and orientated ambulated self to bathroom.
[2023-03-19] MEDS: SENNOSIDES 8.6 MG TABLET PO (16:57)
[2023-03-19] MEDS: ACETAMINOPHEN 325 MG TABLET 650 MG PO ×2 (16:59→20:48)
[2023-03-19] MEDS: hydrALAZINE HCL 20 MG/ML VIAL IV PUSH (21:39)
[2023-03-19 23:08] LABS: Glucose Point of Care 113 mg/dl (65-105)
[2023-03-19] MEDS: ONDANSETRON INJ 4 MG/2 ML VIAL IV PUSH (23:18)
[2023-03-20] VITALS (21 sets, daily range): BP systolic 163–224; BP diastolic 91–120; PULSE 81–105; RESP 16–20; TEMP 36.2–36.8; O2SAT 96–100
[2023-03-20] MEDS: LORazepam INJ (*CRX) 2 MG/ML VIAL 0.5 MG IV PUSH (00:14)
[2023-03-20 04:34] LABS: Hematocrit 50.4 % (42.0-52.0); Hemoglobin 17.2 g/dL (14.0-18.0); Mean Corpuscular HGB Conc 34.1 g/dl (32-36); Mean Corpuscular Hemoglobin 31.3 pg (26-34); Mean Corpuscular Volume 91.8 fl (80-100); Mean Platelet Volume 8.9 fl (7.4-10.4); Platelet Count Result 239 k/mm3 (150-375); Red Blood Count 5.49 M/mm3 (4.6-6.20); Red Cell Distribution Width 12.2 % (11.5-14.5); White Blood Count 9.4 K/mm3 (4.5-10.0)
[2023-03-20 04:49] LABS: Alanine Aminotransferase 23 U/L (6-50); Albumin Level 4.5 g/dL (3.5-5.1); Alkaline Phosphatase 46 U/L (38-126); Anion Gap 11 mmol/L (8-16); Aspartate Amino Transferase 21 U/L (17-59); Bilirubin,Total 0.8 mg/dL (0.2-1.3); Blood Urea Nitrogen 15 mg/dL (9-20); Calcium 8.7 mg/dL (8.4-10.2); Carbon Dioxide 25 mmol/L (22-30); Chloride 99 mmol/L (98-107); Estimated CRCL calculation 85 ml/min; Estimated Glomerular Filt Rate > 60; Glucose 131 mg/dL (65-110); Magnesium 2.5 mg/dL (1.6-2.3); Potassium 3.9 mmol/L (3.4-5.0); Sodium 135 mmol/L (137-145)
[2023-03-20] MEDS: hydrALAZINE HCL 20 MG/ML VIAL IV PUSH (05:35)
--- NOTE | 2023-03-20 07:07 | PC.NURSE ---
0615 patient pulled the bathroom assist cord while on toilet. Tech called for assistance due to patient unable to stand and leaning to right side. Upon entering room, patient alert, not answering to name and unable to assist with upright positioning. Code stroke called at this time. Patient assisted to bed with fidelia. Stroke team at bedside.
--- NOTE | 2023-03-20 07:14 | P.RRN_ITS ---
Critical Care Event Note Summary Code activated: No Narrative: The patient had ambulated to the bathroom with standby assist with the UX INFORMATION ARCHITECT. He called the mid assist button and told the staff that he felt like he was going to fall over. When the UX INFORMATION ARCHITECT arrived to the room the patient was listing to the right side. They got the patient back to bed using a Jade Stedy. The patient was flaccid on the right side. By time I arrived at the code stroke the at the patient was able to move the fingers on his right hand. But he still had pronator drift. He had some movement against gravity his right lower extremity he could move his toes but could not lift his foot from the bed. His stroke scale was 5. The patient did seem to have some slowed speech initially but I do not know what the patient's baseline was. The patient had been admitted for stroke and hypertensive emergency. He has a known acute infarct to the cingulate nucleus. The patient is being sent down for a stat CT of the brain to rule out possible hemorrhagic conversion or new secondary stroke. Will transfer patient to IMU afterwards for closer monitoring for evolution of stroke. I have asked nursing staff to call the neurologist an update her regarding the change in the patient's condition. Neuro checks q.1 hour of been ordered for the immediate future. Daytime hospitalist was contacted and care was signed out at shift change. 30 minute spent in critical care activities. Due to a high probability of clinically significant, life threatening deterioration, the patient required my highest level of preparedness to intervene emergently and I personally spent this critical care time directly and personally managing the patient. This critical care time included obtaining a history; examining the patient; pulse oximetry; ordering and review of studies; arranging urgent treatment with development of a management plan; evaluation of patient's response to treatment; frequent reassessment; and discussions with other providers. It was exclusive of separately billable procedures and treating other patients and teaching time. Please see Assessment and Plan section and the rest of the note for further information on patient assessment and treatment. Critical care time: 30 - 74 mins
--- NOTE | 2023-03-20 07:36 | PC.NURSE ---
Called and left message for , Virgen, at [phone] to return call to [facility] at [phone].
--- NOTE | 2023-03-20 08:30 | PM.IMPN ---
Progress Note: A&P Assessment and Plan (1) Hypertensive emergency: Code(s): I16.1 - Hypertensive emergency Status: Acute Assessment and Plan: Patient was started on nicardipine infusion in the ED which was weaned off Continue p.o. lisinopril and Norvasc and increase dose to keep systolic below 180 without p.r.n. medications 03/19 BP 178/104, avoiding overtreatment after acute stroke, transfer to medical floor per electric hoist operator 03/20 Episodes of right weakness and mild expressive aphasia after labetolol iv for pressure 224/120, lowered to 170s/90s; d/w RN and patient inital goal of pressure 160-179/90'swith further gradual reduction as outpatient 03/20 Screen for CEFERINO and ABILIO with U/s and apneaLink 03/20 Reduced prn lebatolol to 10mg and d/c'ed prn hydralazine 03/20 Added HCTZ 12.5 mg in AM 03/20 Continued Lisinopril 40mg in AM and changed Amlodipine 10mg to HS (2) Cerebrovascular accident: Code(s): I63.9 - Cerebral infarction, unspecified Status: Acute Assessment and Plan: Stroke was suspected upon initial history and MRI was ordered MRI brain showed IMPRESSION: 1. Acute infarct involving the left cingulate gyrus. 2. Extensive cerebral white matter disease, mild cerebellar white matter disease, and scattered foci of old microhemorrhage in the brain, consistent with chronic hypertensive encephalopathy. Continue ASA and statin 03/20: NIHSS = 0 (3) Elevated brain natriuretic peptide (BNP) level: Code(s): R79.89 - Other specified abnormal findings of blood chemistry Status: Acute Assessment and Plan: Chest x-ray clear. No edema in legs Echo shows diastolic dysfunction likely secondary to uncontrolled hypertension Summary ? 1. Complete two-dimensional, color flow and Doppler transthoracic echocardiogram is performed. ? 2. Left ventricular chamber dimension is normal. ? 3. Left ventricular systolic function is normal, estimated at 65-70%. ? 4. There is mild concentric increased left ventricular wall thickness. ? 5. The left ventricular diastolic function is grade I diastolic dysfunction. ? 6. E/e' 18 is elevated. ? 7. There is mild aortic valve sclerosis. ? 8. There is trace tricuspid valve regurgitation. ? 9. No pulmonary hypertension, estimated pulmonary arterial systolic pressure is 29 mmHg. ? 10. There is trace pulmonic regurgitation. (4) Hypertensive encephalopathy: Code(s): I67.4 - Hypertensive encephalopathy Status: Acute Assessment and Plan: 03/18 resolved Plan DVT prophylaxis -SCDs Subjective Date/time seen: 03/20/23 08:30 Interval history: Episode this morning right-sided weakness and difficulty with speech. Completely resolved. Headache at this point. No other complaints except feeling tired. Has a history of difficult to control blood pressure. No focal weakness or numbness. No speech difficulties. No chest pain or shortness of breath. No visual difficulties. No GI or complaints other than still constipated. Does have a history of dozing off after dinner. Has observed apneas by his . Snores loudly. To his knowledge she has never been screened for secondary causes of hypertension Review of Systems Review of Systems: All systems reviewed & are unremarkable except as noted in HPI and below Exam Narrative: General: Pt is alert awake and in NAD, A&O x 3 Neck No JVD Lungs/Chest: Trachea central Clear BS B/L, No crackles or wheezing. Cardiac: RRR. Normal S1 S2. No murmurs Circulation: Pedal pulses are intact and symmetrical. Abdomen: Normal bowel sounds.. Soft. NT. ND. Extremities: No clubbing, cyanosis or edema. Warm : Siu in place Neurologic: CN symmetric to visual inspection. Follows commands. Moves all 4 extremities PERRL AO x3, cranial nerves 2-12 intact, muscle strength is essentially symmetric 5/5 bilaterally, speech normal. No pronator drift. NIHSS = 0 Skin: No Rash Objective Data Vital Signs Vital Signs: Vital Signs -
[2023-03-20] MEDS: ASPIRIN 325 MG ENTERIC TABLET PO (09:37)
[2023-03-20] MEDS: ATORVASTATIN 40 MG TABLET PO (09:38)
[2023-03-20] MEDS: lisinopriL 20 MG TABLET 40 MG PO (09:38)
[2023-03-20] MEDS: SENNOSIDES 8.6 MG TABLET PO (09:38)
[2023-03-20] MEDS: ACETAMINOPHEN 325 MG TABLET 650 MG PO ×3 (09:39→18:53)
[2023-03-20] MEDS: hydroCHLOROthiazide 12.5 MG CAPSULE PO (09:41)
[2023-03-20] MEDS: LABETALOL HCL INJ 100 MG/20 ML VIAL 10 MG IV PUSH (18:52)
[2023-03-20] MEDS: amLODIPine BESYLATE 5 MG TABLET 10 MG PO (20:04)
--- NOTE | 2023-03-20 22:34 | PCRCNOTE ---
Respiratory Therapy: Placed pt on Apnea link monitor on room air at 2230.
[2023-03-21] VITALS (23 sets, daily range): BP systolic 179–209; BP diastolic 94–118; PULSE 61–96; RESP 20; TEMP 36.3–36.9; O2SAT 97–99
[2023-03-21] MEDS: ACETAMINOPHEN 325 MG TABLET 650 MG PO ×5 (00:33→21:27)
[2023-03-21] MEDS: LABETALOL HCL INJ 100 MG/20 ML VIAL 10 MG IV PUSH (00:33)
[2023-03-21 04:51] LABS: Hematocrit 50.5 % (42.0-52.0); Hemoglobin 17.6 g/dL (14.0-18.0); Mean Corpuscular HGB Conc 34.9 g/dl (32-36); Mean Corpuscular Hemoglobin 31.4 pg (26-34); Mean Corpuscular Volume 90.2 fl (80-100); Platelet Count Result 252 k/mm3 (150-375); Red Cell Distribution Width 12.3 % (11.5-14.5); White Blood Count 9.5 K/mm3 (4.5-10.0)
[2023-03-21 05:05] LABS: Alanine Aminotransferase 22 U/L (6-50); Albumin Level 4.9 g/dL (3.5-5.1); Alkaline Phosphatase 53 U/L (38-126); Anion Gap 8 mmol/L (8-16); Aspartate Amino Transferase 24 U/L (17-59); Bilirubin,Total 1.1 mg/dL (0.2-1.3); Blood Urea Nitrogen 13 mg/dL (9-20); Calcium 9.3 mg/dL (8.4-10.2); Carbon Dioxide 29 mmol/L (22-30); Chloride 98 mmol/L (98-107); Estimated CRCL calculation 85 ml/min; Estimated Glomerular Filt Rate > 60; Glucose 127 mg/dL (65-110); Magnesium 2.2 mg/dL (1.6-2.3); Potassium 3.7 mmol/L (3.4-5.0); Sodium 135 mmol/L (137-145)
[2023-03-21] MEDS: hydroCHLOROthiazide 12.5 MG CAPSULE 25 MG PO (10:08)
[2023-03-21] MEDS: METOPROLOL TARTRATE 25 MG TABLET PO (10:08)
[2023-03-21] MEDS: ATORVASTATIN 40 MG TABLET PO (10:09)
[2023-03-21] MEDS: ASPIRIN 325 MG ENTERIC TABLET PO (10:09)
[2023-03-21] MEDS: lisinopriL 20 MG TABLET 40 MG PO (10:09)
[2023-03-21] MEDS: polyethylene glycoL 3350 17 GM POWD.PACK PO (10:38)
[2023-03-21] MEDS: SENNOSIDES 8.6 MG TABLET 17.2 MG PO (10:38)
--- NOTE | 2023-03-21 11:54 | PM.IMPN ---
Progress Note: A&P Assessment and Plan (1) Hypertensive emergency: Code(s): I16.1 - Hypertensive emergency Status: Acute Assessment and Plan: Blood pressure still high continue p.o. lisinopril and Norvasc 03/20 Added HCTZ 12.5 mg in AM. Increase to 25 mg daily Add low-dose metoprolol (2) Cerebrovascular accident: Code(s): I63.9 - Cerebral infarction, unspecified Status: Acute Assessment and Plan: Stroke was suspected upon initial history and MRI was ordered MRI brain showed IMPRESSION: 1. Acute infarct involving the left cingulate gyrus. 2. Extensive cerebral white matter disease, mild cerebellar white matter disease, and scattered foci of old microhemorrhage in the brain, consistent with chronic hypertensive encephalopathy. Continue ASA and statin (3) Elevated brain natriuretic peptide (BNP) level: Code(s): R79.89 - Other specified abnormal findings of blood chemistry Status: Acute Assessment and Plan: Chest x-ray clear. No edema in legs Echo shows diastolic dysfunction likely secondary to uncontrolled hypertension Summary ? 1. Complete two-dimensional, color flow and Doppler transthoracic echocardiogram is performed. ? 2. Left ventricular chamber dimension is normal. ? 3. Left ventricular systolic function is normal, estimated at 65-70%. ? 4. There is mild concentric increased left ventricular wall thickness. ? 5. The left ventricular diastolic function is grade I diastolic dysfunction. ? 6. E/e' 18 is elevated. ? 7. There is mild aortic valve sclerosis. ? 8. There is trace tricuspid valve regurgitation. ? 9. No pulmonary hypertension, estimated pulmonary arterial systolic pressure is 29 mmHg. ? 10. There is trace pulmonic regurgitation. (4) Hypertensive encephalopathy: Code(s): I67.4 - Hypertensive encephalopathy Status: Acute Assessment and Plan: resolved Subjective Date/time seen: 03/21/23 11:54 Interval history: No focal neurological weakness the patient reports imbalance Review of Systems Review of Systems: All systems reviewed & are unremarkable except as noted in HPI and below Exam Narrative: General: Pt is alert awake and in NAD, A&O x 3 Neck No JVD Lungs/Chest: Trachea central Clear BS B/L, No crackles or wheezing. Cardiac: RRR. Normal S1 S2. No murmurs Circulation: Pedal pulses are intact and symmetrical. Abdomen: Normal bowel sounds.. Soft. NT. ND. Extremities: No clubbing, cyanosis or edema. Warm : Siu in place Neurologic: CN symmetric to visual inspection. Follows commands. Moves all 4 extremities PERRL AO x3, cranial nerves 2-12 intact, muscle strength is essentially symmetric 5/5 bilaterally, speech normal. No pronator drift. NIHSS = 0 Skin: No Rash Objective Data Vital Signs Vital Signs: Vital Signs - 24 hr 03/20/23 12:00 03/20/23 12:00 03/20/23 12:00 Temperature Pulse Rate 97 103 H Respiratory Rate Blood Pressure Pulse Oximetry Oxygen Delivery Room Air 03/20/23 12:27 03/20/23 13:01 03/20/23 14:00 Temperature 98.0 F Pulse Rate 93 92 Respiratory Rate 20 Blood Pressure 178/96 H Pulse Oximetry 99 Oxygen Delivery Room Air 03/20/23 17:14 03/20/23 18:52 03/20/23 16:00 Temperature 98.3 F Pulse Rate 90 97 Respiratory Rate 16 Blood Pressure 200/97 H Pulse Oximetry 98 Oxygen Delivery Room Air 03/20/23 16:00 03/20/23 18:00 03/20/23 20:00 Temperature 97.3 F L Pulse Rate 87 88 85 Respiratory Rate 20 Blood Pressure 205/119 H Pulse Oximetry 100 Oxygen Delivery 03/20/23 23:03 03/21/23 00:33 03/21/23 01:11 Temperature 97.2 F L Pulse Rate 81 87 Respiratory Rate 20 Blood Pressure 206/97 H 194/106 H Pulse Oximetry 100 Oxygen Delivery 03/20/23 20:00 03/21/23 00:00 03/20/23 20:00 Temperature Pulse Rate 82 Respiratory Rate Blood Pressure Pulse Oximetry Oxygen Delivery Room Air Room Air 03/20/23 22:
--- NOTE | 2023-03-21 12:43 | WPDNEUROPN ---
Subjective Date/time seen: 03/21/23 12:43 Interval history: 57 years old right-handed male [facility] the complaints of generalized weakness with confusion in addition to the hypertension and subsequent evaluation documenting abnormal MRI with acute infarct involving the left cingulate gyrus and extensive white matter disease with multiple foci of old micro hemorrhages in the brain consistent with chronic hypertensive encephalopathy head and neck CTA again reconfirmed the left cingulate gyrus acute infarct but no vascular blockage his initial CT scan of the head was consistent with atrophy and chronic white matter changes and the repeat CT scan with continued evolution of the acute infarct in the left cingulate gyrus, his medications do include metoprolol 25 mg q.12 amlodipine 10 mg HS lisinopril 40 mg every morning in addition to atorvastatin 40 mg daily and aspirin 325 mg daily he had and rapid response on 430 when he was noted to have flaccidity on the right side with subsequent improvement though noted least slowed speech, this morning is awake alert cooperative his speech is not dysphasic not dysarthric not dysphonic, extraocular movements are full with no nystagmus, motor examination revealed him to have no drift reflexes are symmetrical and plantars are downgoing his medications have been readjusted to lower the blood pressure accordingly. And also will re-examine but again the medication will be continued as such at this particular time Objective Data Vital Signs Vital Signs: Vital Signs - 24 hr 03/20/23 13:01 03/20/23 14:00 03/20/23 17:14 Temperature 36.8 C Pulse Rate 92 90 Respiratory Rate 16 Blood Pressure 200/97 H Pulse Oximetry 98 Oxygen Delivery Room Air 03/20/23 18:52 03/20/23 16:00 03/20/23 16:00 Temperature Pulse Rate 97 87 Respiratory Rate Blood Pressure Pulse Oximetry Oxygen Delivery Room Air 03/20/23 18:00 03/20/23 20:00 03/20/23 23:03 Temperature 36.3 C L 36.2 C L Pulse Rate 88 85 81 Respiratory Rate 20 20 Blood Pressure 205/119 H 206/97 H Pulse Oximetry 100 100 Oxygen Delivery 03/21/23 00:33 03/21/23 01:11 03/20/23 20:00 Temperature Pulse Rate 87 Respiratory Rate Blood Pressure 194/106 H Pulse Oximetry Oxygen Delivery Room Air 03/21/23 00:00 03/20/23 20:00 03/20/23 22:00 Temperature Pulse Rate 82 84 Respiratory Rate Blood Pressure Pulse Oximetry Oxygen Delivery Room Air 03/21/23 00:00 03/21/23 01:53 03/21/23 03:51 Temperature 36.4 C Pulse Rate 80 89 Respiratory Rate 20 Blood Pressure 207/109 H 205/118 H Pulse Oximetry 99 Oxygen Delivery 03/21/23 02:00 03/21/23 04:00 03/21/23 04:00 Temperature Pulse Rate 86 88 Respiratory Rate Blood Pressure Pulse Oximetry Oxygen Delivery Room Air 03/21/23 06:00 03/21/23 08:50 03/21/23 08:51 Temperature 36.3 C L Pulse Rate 80 93 Respiratory Rate 20 Blood Pressure 185/110 H 196/104 H Pulse Oximetry 97 Oxygen Delivery 03/21/23 10:08 Temperature Pulse Rate 96 Respiratory Rate Blood Pressure Pulse Oximetry Oxygen Delivery Intake/Output Intake/Output: Intake & Output 03/18/23 03/19/23 03/20/23 03/21/23 23:59 23:59 23:59 23:59 Intake Total 480 1420 2070 360 Output Total 2100 2200 1800 700 Balance -1620 -780 270 -340 Meds/Results Medications: Active Medications Generic Name Dose Route Start Last Admin Trade Name Freq PRN Reason Stop Dose Admin Acetaminophen 650 mg 03/18/23 11:55 03/21/23 10:39 Acetaminophen 325 Mg Tablet PO 650 mg Q4H PRN Administration Headache, fever, mild pain Amlodipine Besylate 10 mg 03/20/23 21:00 03/20/23 20:04 Amlodipine Besylate 5 Mg Tablet PO 10 mg QHS TRAN Administration Aspirin 325 mg 03/19/23 09:00 03/21/23 10:09 Aspirin 325 Mg Enteric Tablet PO 325 mg QAM TRAN Administration Atorvastatin Calcium 40
--- NOTE | 2023-03-21 21:08 | PM.EVENT ---
Event Note Event Note Event Note: 03/21/2023 at 21:00 The patient had been admitted for hypertensive encephalopathy and left cingulate nucleus CVA on the . He had been treated with nicardipine drip and eventually was transferred out to the medical floor. He had carotid Dopplers, CT of the head and neck, and renal duplex performed which demonstrated no evidence of stenosis. The patient had previously been on antihypertensives many years ago but stopped them after dietary changes and weight loss resulted in normal tension. The patient had not seen a primary care physician in many years before he returned to the ER for his symptoms on the . While on the medical floor on the morning of the a code stroke was called when the patient listed the sidewall on the commode and had transient hemiplegia of the right upper and lower extremity. On the night of the into the nursing staff called Ms. The patient was complaining of constipation. The patient already had stool softeners on board in the patient what it a suppository. However at that time the patient was also complaining of feeling dizzy and lightheaded and not quite right. I did not want the patient to be having a vagal episode and possibly syncopized so I did not want to give suppository until the patient's symptoms had changed. The patient got up multiple times inter at a bowel movement. The patient received a suppository on the morning of and has had a couple of good bowel movement. The patient states he no longer feels like he has to have a bowel movement. Base complaining because he feels like every night he gets worse instead of better. He feels more restless at night and has not had a good night sleep. He usually takes melatonin at home. Melatonin had been ordered by the daytime provider and was administered after my interview. The family wanted to talked to me because they were on happy with the care the patient was receiving. They felt like we were not doing enough for the patient. I went and talked to them face to face for over 40 minutes after reviewing the chart. I tried to did discuss with them the process of bringing the patient's blood pressures down slowly giving in his hypertensive encephalopathy, CVA and hypertensive emergency. The patient's blood pressures were between 230 systolic and 250 systolic odd presentation to the ER. The goal to bring the patient's blood pressure down by 10 the 20% over the 1st 72 hours was discussed with the family in detail. The patient's blood pressures for the most part have been running between 180 and 200 which is our goal range. They are upset that they keep getting told that the patient shins blood pressure still really high each time the patient's blood pressures taken. And I tried to explain that although his blood pressure is still really high for normal person he is coming down to the expected values that we anticipate for this point in his hospitalization. The patient was initially started on lisinopril 40 mg on the , Norvasc 10 mg on the , 12.5 mg of hydrochlorothiazide on the and hydrochlorothiazide was increased to 25 mg on the . Patient was also started on metoprolol 25 mg on the . At the time of my evaluation on the evening of the I increase the patient's Toprol to 50 mg. I discussed with the patient and his (in person) and his son (over the phone) regarding half lives and the anticipated peak of medications explaining that the patient's lisinopril should be its peak with his current dose or at least by tomorrow and that we start the other medications in a stepwise fashion so that the medications will gradually bring down the patient's blood pressure. They still do not seem happy with this explanation. The patient is also been seen by Neurology at our facility and has been evaluated by both Physical therapy and Occupational therapy. Occupation therapy documents some unsteadiness and weakness 1 guide
[2023-03-21] MEDS: MELATONIN 5 MG TABLET PO (21:28)
[2023-03-21] MEDS: amLODIPine BESYLATE 5 MG TABLET 10 MG PO (21:29)
[2023-03-21] MEDS: METOPROLOL TARTRATE 50 MG TAB PO (21:30)
== END 2023-03-21 23:30 | disposition left against medical advice (07) | DRG 65 ==
LOC: ANHED 07:53 → ANHICU 10:19 → ANH3MEDSUR 03-19 13:50 → ANHIMU 03-20 07:06
PROVIDERS: Internal Medicine; Student in an Organized Health Care Education/Training Program; Admitting Provider Family Medicine; Emergency Provider Emergency Medicine; PCP Family Medicine; Visit Provider Internal Medicine
DX: I63.89 Other cerebral infarction (principal); G81.91 Hemiplegia, unspecified affecting right dominant side; I16.1 Hypertensive emergency; I67.4 Hypertensive encephalopathy; R47.81 Slurred speech; R47.01 Aphasia; E78.5 Hyperlipidemia, unspecified; K59.00 Constipation, unspecified; R29.705 NIHSS score 5; Z87.442 Personal history of urinary calculi; Z91.148 Patient's other noncompliance with medication regimen for other reason
CPT/HCPCS: 36415; 70450; 70496; 70498; 70551; 71045; 80053; 80061; 81001; 82948; 83036; 83735; 83880; 84443; 84484; 85025; 85027; 85610; 85730; 92523; 92610; 93005; 93306; 93308; 93880; 93976; 96365; 96366; 96375; 96376; 97110; 97116; 97161; 97165; 97530; 99285; A9270; G0378; J0360; J2060; J2405; Q9967

== ENCOUNTER → 2023-07-14 08:13 | Outpatient (CLI) | payer OTHER, SELFPAY ==
--- NOTE | ~2023-07-14 | CT_ITS ---
EXAMINATION: CT abdomen w con DATE: 07/14/2023 08:57 INDICATION: Right-sided abdominal pain TECHNIQUE: Computed tomography (CT) of the abdomen and pelvis was performed with 100 cc Omnipaque 350 intravenous contrast. The dose-length product was 526.75 mGy-cm. Automated exposure control and iter ative reconstruction technique were employed. COMPARISON: CT dated 04/29/2011 FINDINGS: Lung bases are unremarkable. Heart size normal. No significant pleural or pericardial effus ion. No significant vascular abnormality. No lymphadenopathy. There are gallstones. There is possible mild gallbladder wall thickening. Recommend correlation with ultrasound. No significant biliary dila tation. The spleen, pancreas, adrenal glands and kidneys are unremarkable. There is an right renal cy st posteriorly. No free air or free fluid. Nonobstructive bowel pattern. IMPRESSION: 1. Cholelithiasis with possible gallbladder wall thickening. Consider correlation with abdominal ultr asound. Reviewed, dictated and finalized at location L. IMPRESSION: 1. Cholelithiasis with possible gallbladder wall thickening. Consider correlati on with abdominal ultrasound.
[2023-07-14 08:42] LABS: Estimated Glomerular Filt Rate > 60
== END ==
PROVIDERS: PCP Family Medicine; Visit Provider Physician Assistant
DX: R10.9 Unspecified abdominal pain (principal); K80.20 Calculus of gallbladder without cholecystitis without obstruction
CPT/HCPCS: 74160; Q9967

== ENCOUNTER 2023-08-19 12:33 | Outpatient (CLI) | payer OTHER, SELFPAY ==
[2023-08-22 02:57] LABS: Thyroid Peroxidase Antibodies 4 IU/mL (<9)
== END 2023-08-19 12:34 | disposition home or self-care (01) ==
LOC: ANHGOSHLAB 12:35
PROVIDERS: PCP Family Medicine; Visit Provider Family Medicine
DX: E06.3 Autoimmune thyroiditis (principal)
CPT/HCPCS: 36415; 84443; 86376

== ENCOUNTER → 2023-08-19 12:50 | Outpatient (CLI) | payer OTHER, SELFPAY ==
--- NOTE | ~2023-08-19 | US_ITS ---
EXAMINATION: US thyroid DATE: 08/19/2023 13:10 INDICATION: Autoimmune thyroiditis TECHNIQUE: Multiple ultrasound images of the thyroid were obtained. COMPARISON: None. FINDINGS: The right thyroid lobe measures 5.3 x 1.9 x 2.0 cm. The left thyroid lobe measures 4.6 x 1.8 x 2.5 c m. There is normal echotexture and slightly heterogeneous echogenicity throughout the thyroid gland. No discrete nodules identified. Increased vascular flow is present. IMPRESSION: Slightly heterogeneous echogenicity and increased vascularity within the thyroid gland, as can be see n with Graves' disease and occasionally Cedric's thyroiditis. Reviewed, dictated and finalized at location K. IMPRESSION: Slightly heterogeneous echogenicity and increased vascularity within the thyroi d gland, as can be seen with Graves' disease and occasionally Cedric's thyro iditis.
== END ==
PROVIDERS: PCP Family Medicine; Visit Provider Family Medicine
DX: E06.3 Autoimmune thyroiditis (principal)
CPT/HCPCS: 76536

== ENCOUNTER 2023-09-09 13:22 | Outpatient (CLI) | payer OTHER, SELFPAY ==
[2023-09-09 15:44] LABS: Free T4 Free Thyroxine 1.06 ng/mL (0.78-2.19)
[2023-09-13 04:21] LABS: Iodine Serum/Plasma 67 mcg/L (52-109)
[2023-09-14 13:53] LABS: Thyroid Stimulating Immunoglob <89 % baseline (<140)
[2023-09-15 10:00] LABS: T3 Reverse 18 ng/dL (8-25)
== END 2023-09-09 13:23 | disposition home or self-care (01) ==
LOC: ANHGOSHLAB 13:24
PROVIDERS: PCP Family Medicine; Visit Provider Family Medicine
DX: E06.3 Autoimmune thyroiditis (principal)
CPT/HCPCS: 36415; 82542; 84439; 84443; 84445; 84482; 86800

== ENCOUNTER 2023-09-15 06:59 | Outpatient (CLI) | payer OTHER, SELFPAY ==
[2023-09-15 07:31] LABS: Alanine Aminotransferase 24 U/L (6-50); Albumin Level 4.5 g/dL (3.5-5.1); Alkaline Phosphatase 53 U/L (38-126); Amylase 86 U/L (30-110); Aspartate Amino Transferase 28 U/L (17-59); Bilirubin,Total 0.7 mg/dL (0.2-1.3); Lipase 83 U/L (23-300)
== END 2023-09-15 07:00 | disposition home or self-care (01) ==
LOC: ANHSURGERY 07:02
PROVIDERS: PCP Family Medicine; Visit Provider Surgery
DX: Z01.818 Encounter for other preprocedural examination (principal); K80.10 Calculus of gallbladder with chronic cholecystitis without obstruction
CPT/HCPCS: 36415; 80076; 82150; 83690; 86850; 86900; 86901

== ENCOUNTER 2023-09-19 01:04 | Day surgery (SDC) | payer OTHER, SELFPAY ==
--- NOTE | 2023-09-13 16:42 | PC.NURSE ---
Report to the Outpatient Waiting Room, entrance under the green pavilion located off [facility], at time 0600 on date 09/19/23. Planned Procedure Time: 0730. Time changes happen often and if your time is changed the preop area will call you the afternoon before. - You and your visitor will be asked to self-screen and do not enter if you have any COVID symptoms. - A mask is optional within the hospital at this time. Patients may have clear liquids (water, carbonated beverages, clear teas, apple juice) until 3 hours prior to surgery with a maximum of 20 ounces. 0430 - No food from midnight until time of surgery - Infants may have breast milk until 4 hours before surgery, formula 6 hours prior to surgery. - Children will be allowed to drink immediately following surgery. If applicable, please bring a bottle or sippy cup to assist with drinking. Juice, water, soda, and popsicles are readily available. For infants on formula, please bring formula the day of surgery. Pacifiers are allowed. Take the following medications with a SIP of water the morning of surgery: XANAX DO NOT STOP ANY OF YOUR OTHER PRESCRIPTION MEDICATIONS PRIOR TO SURGERY ?EXCEPT THE FOLLOWING Medications to discontinue per physician VITAMINS & SUPPLEMENTS, HYDROXYZINE, PLAVIX (OKAY TO TAKE BP MEDS THE NIGHT BEFORE SURGERY) Date to take last dose 09/15/23- VITAMINS & SUPPLEMENTS, 09/11/23- PLAVIX Please no make-up, nail kiswahili, hairspray, perfume, deodorant, or body powder the day of surgery. No jewelry (including any body piercings) or valuables the day of surgery, leave them at home. Please take a shower or bath the night before, or the morning of, surgery with an antibacterial soap. Wear comfortable, loose fitting clothing. Children are encouraged to wear pajamas. - Jewelry must be removed prior to entering the operating room. Rings and piercings that are not removed may be cut off. - The hospital will not accept responsibility for valuables. - Please leave all valuables, including medications, at home the day of surgery. If you are going home after surgery, a licensed oil transport driver must drive you home. - NO public transportation without another adult if you receive anesthesia. - We recommend that an adult stay with you for 24 hours following discharge. - We also recommend that you do not drive, make important decision, drink alcoholic beverages, or take any drugs that were not prescribed by your health care provider for at least 24 hours after your discharge time. For Pediatric surgeries, we recommend two adults accompany the child home. Follow any additional instructions given to you from your surgeon. If you or anyone in your household have experienced Covid symptoms in the past week, please notify your surgeon or the nurse liaison at the phone number below for possible testing. Telephone instructions given to PATIENT- PHIL URIARTE and asked if any additional questions and then verbalized understanding. Patient advised to call surgeon office or pre surgery nurse liaison [phone] if any additional questions.
[2023-09-13 16:59] VITALS: BMI 27.2
[2023-09-19] VITALS (12 sets, daily range): BP systolic 96–211; BP diastolic 48–111; PULSE 50–78; RESP 13–19; TEMP 36.3–36.8; O2SAT 98–100
[2023-09-19] MEDS: LACTATED RINGERS 1,000 ML 30 ML IV CONT ×2 (06:55→08:34)
[2023-09-19] MEDS: ACETAMINOPHEN 500 MG TABLET 1000 MG PO (06:59)
[2023-09-19] MEDS: KETOROLAC 15 MG/ML VIAL (*BKC) IV PUSH (07:00)
--- NOTE | 2023-09-19 07:13 | WPDANESEPPF ---
Anes - Initial Pre Proc Eval Procedure: Operation Date: 09/19/23 07:30 Proposed Procedures p Laparoscopic Cholecystectomy - Rosalinda Tang MD Date/Time: 09/19/23 07:13 Surgeon: Rosalinda Tang MD Pre Op Diagnosis: Chr Calculous Cholecystitis Patient Data Age: 58 Gender: M Height: 1.8 m Weight: 88.6 kg Allergies Allergy/AdvReac Type Severity Reaction Status Date / Time No Known Allergies Allergy Verified 09/13/23 16:29 Home Medications Medication Instructions Recorded Confirmed Type clopidogrel 75 mg tablet 75 mg PO DAILY #90 tabs 04/19/23 09/13/23 Rx hydroxyzine HCl 25 mg tablet 25 mg PO QHS PRN sleep #90 tabs 05/27/23 09/13/23 Rx alprazolam 0.25 mg tablet 0.25 mg PO BID PRN anxiety #20 tabs 07/11/23 09/13/23 Rx All Purpose Multivitamin-Min 1 tab-cap PO DAILY 09/13/23 09/13/23 History metoprolol succinate 25 mg 50 mg PO HS 09/13/23 09/13/23 History tablet,extended release 24 hr losartan 50 mg tablet 75 mg PO HS #135 tabs 09/14/23 Rx Patient hx anesthesia problems: none Family hx anesthesia problems: none Results Review: All pre-operative results and documents have been reviewed as part of the pre-operative evaluation. [facility] Past Medical History Medical History Hypertension Kidney stones Surgical History Surgical History History of tonsillectomy (1969) Family History Family History (Updated 07/27/23 @ 10:44 by Izzy James MA) Mother Family history of cardiovascular disease Heart disease Father Diabetes mellitus Sibling Liver disease Social History Social History (Updated 09/13/23 @ 18:09 by Estella Carter RN) Social History: Surrogate medical decision maker: Virgen Bain, spouse. Code status: Full code. Smoking status: Never smoker Second hand tobacco smoke exposure: No Alcohol intake: former Drinks per week: 2 Alcohol use details: Beer on the weekends. Substance use: never Lack of Transportation: No Lack of Food: Never True Current Housing: I Have Housing Concerned About Future Housing: No Difficulty Paying Gas/Electric Bills: No Difficulty Paying for Meds: No Currently Unemployed: No Education: Bachelor's Degree Difficulty w/ Childcare or Family Care: No Living arrangements: with family Additional living arrangements comments: Lives in [place] with spouse. 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 Gender identity (if verbalized by the patient): Male Sexual Orientation (if Verbalized by the Patient): Straight or Heterosexual Spiritual care concerns: No Anes - Eval Final PreProcedure Day of Procedure 09/19/23 07:13 Patient weight: normal Heart: regular rate and rhythm Lungs: clear to auscultation Airway: Mallampati scale class II Neurological: alert and oriented Last oral intake: >/= 8 hours ASA classification: III Emergent: no Anesthetic plan: proceed Anesthesia type and monitoring: general ETT and standard monitoring Results Review: All pre-operative results and documents have been reviewed as part of the pre-operative evaluation. Informed Consent: The patient's anesthetic plan and its attendant risks and benefits were discussed with the patient/family/POA. Questions were solicited and answers provided to the satisfaction of the patient/family/POA.
--- NOTE | 2023-09-19 07:18 | PM.IMHP ---
H&P: HPI History of Present Illness Date/Time: 09/19/23 07:18 Chief Complaint: upper abdominal pain Narrative: Anthony is a 58 y/o male who presents to the office at the request of Gwyn Donaldson PA-C for evaluation of abdominal pain that has been occurring for the last few months. He reports that he has been having right sided abdominal pain but denies nausea or vomiting. He has also switched to a plant based diet to help with his symptoms. He had recent CT abd with contrast on 07/14/23 showed cholelithiasis with possible gallbladder wall thickening. Review of Systems Review of Systems: All systems reviewed & are unremarkable except as noted in HPI and below PMFSH Past Medical History Medical History Hypertension Kidney stones Surgical History Surgical History History of tonsillectomy (1969) Family History Family History Mother Family history of cardiovascular disease Heart disease Father Diabetes mellitus Sibling Liver disease Social History Social History Social History: Surrogate medical decision maker: Virgen Bain, spouse. Code status: Full code. Smoking status: Never smoker Second hand tobacco smoke exposure: No Alcohol intake: former Drinks per week: 2 Alcohol use details: Beer on the weekends. Substance use: never Lack of Transportation: No Lack of Food: Never True Current Housing: I Have Housing Concerned About Future Housing: No Difficulty Paying Gas/Electric Bills: No Difficulty Paying for Meds: No Currently Unemployed: No Education: Bachelor's Degree Difficulty w/ Childcare or Family Care: No Living arrangements: with family Additional living arrangements comments: Lives in [place] with spouse. 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 Gender identity (if verbalized by the patient): Male Sexual Orientation (if Verbalized by the Patient): Straight or Heterosexual Spiritual care concerns: No Meds Home Medications and Allergies Home Medications Medication Instructions Recorded Confirmed Type clopidogrel 75 mg tablet 75 mg PO DAILY #90 tabs 04/19/23 09/13/23 Rx hydroxyzine HCl 25 mg tablet 25 mg PO QHS PRN sleep #90 tabs 05/27/23 09/13/23 Rx alprazolam 0.25 mg tablet 0.25 mg PO BID PRN anxiety #20 tabs 07/11/23 09/13/23 Rx All Purpose Multivitamin-Min 1 tab-cap PO DAILY 09/13/23 09/13/23 History metoprolol succinate 25 mg 50 mg PO HS 09/13/23 09/13/23 History tablet,extended release 24 hr losartan 50 mg tablet 75 mg PO HS #135 tabs 09/14/23 Rx Allergies Allergy/AdvReac Type Severity Reaction Status Date / Time No Known Allergies Allergy Verified 09/13/23 16:29 Exam Const: General: cooperative, comfortable and no acute distress Cardio: Rate: regular rate Rhythm: regular rhythm GI: Inspection: normal to inspection and non-distended GI Palp: No abdominal tenderness, Yes Soft to palpation, No Tenderness to palpation present (GI), No Guarding due to palpation present (GI) and No Rigid due to palpation Assessment and Plan Assessment and plan (1) Chronic cholecystitis with calculus: Code(s): K80.10 - Calculus of gallbladder with chronic cholecystitis without obstruction Status: Acute Assessment and Plan: will setup for cholecystectomy (2) Anticoagulant long-term use: Code(s): Z79.01 - 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
--- NOTE | 2023-09-19 07:22 | WPDHPUPDATE1 ---
History and Physical Update Update Date/Time: 09/19/23 07:22 History and Physical has been reviewed, including an updated exam of the patient. There are NO changes in the patient's condition. Risks, benefits, and alternatives have been discussed and questions answered. Patient agrees to proceed with procedure.
[2023-09-19] MEDS: ceFAZolin 2 GM/D5W 50 ML 2 GM/50 ML BAG IVPB (07:30)
[2023-09-19] MEDS: BUPIVACAINE/EPINEPHRINE 0.5% 50 ML VIAL INFILTRATE (07:56)
--- NOTE | 2023-09-19 08:20 | W.PM.PROC2 ---
Procedure Note - Detailed Date of Procedure 09/19/23 Pre-op Diagnosis Chronic cholecystitis with cholelithiasis Post-op Diagnosis Same Procedure Performed Laparoscopic cholecystectomy Surgeon Rosalinda Tang MD Anesthesia General Indications 58-year-old male presented to the office complaining of postprandial right upper quadrant abdominal pain associated with nausea and vomiting. Workup including imaging significant for cholecystitis, cholelithiasis. Findings Cholecystitis with cholelithiasis Description of Procedure The patient was taken to the operating room placed in the supine position. After adequate induction of general anesthesia, the patient was prepped and draped in normal sterile fashion. A time-out was then performed to verify the patient's identity as well as the procedure being performed. I then made a 5 mm incision in the infraumbilical region. Through this, a Veress needle was placed into the peritoneal cavity and CO2 gas was then insufflated. After adequate pneumoperitoneum was achieved, the Veress needle was removed and a 5 mm optiview trocar was placed through this incision under direct visualization. I then placed the laparoscope through this trocar site and under direct visualization placed a further 12 mm subxiphoid port as well as 2 additional 5 mm ports in the right upper abdomen. The gallbladder was then identified and was noted to be moderately inflamed, distended, and full of gallstones. I was able to place a grasper at the dome of the gallbladder and this was retracted anterior and cephalad up over the liver. A 2nd retractor was then placed at the infundibulum and retracted laterally, this allowed visualization of the triangle of Calot. I then was able to visualize the cystic duct in its entirety from its proximal insertion into the gallbladder, to its distal junction with the common hepatic/common bile duct junction. At this point, I carefully skeletonized the proximal cystic duct with the [place] dissector. I then clipped and transected the proximal cystic duct. Next I visualized the cystic artery. Again the artery was skeletonized, clipped, and transected. I then used the Bovie cautery to take down the peritoneal attachments of the gallbladder off the liver bed. This was somewhat difficult given the amount of inflammation in the posterior space. Once the gallbladder specimen was completely detached, an endo-pouch was placed through the 12 mm port site. I then placed the gallbladder specimen into the Endo pouch and removed the endo-pouch from the 12 mm port site. The specimen will now be sent to pathology for further review. I then copiously irrigated the right upper quadrant. Hemostasis was noted in the liver bed, the clips were noted to be in good position on both the cystic duct stump and the cystic artery stump. No other pathology was noted in the right upper quadrant. I then moved the laparoscope to the subxiphoid port. No iatrogenic injury or other pathology was noted in the lower abdomen. I then closed the 12 mm trocar site under direct visualization using the Odell cone and 0 Vicryl suture. At this point, the abdomen was desufflated and all ports removed. All port sites were then closed with 4.O Monocryl subcuticular sutures. Dermabond was placed on each incision. The patient tolerated the procedure well, was extubated in the operating room postoperative and will be transferred to the recovery room in stable condition Estimated Blood Loss 5 Drains No Packing No Pathology Yes Complications No immediate complications Condition Stable Disposition PACU [facility] Billing Surgery - Charge Forward: Surgery Billing
[2023-09-19] MEDS: hydrALAZINE HCL 20 MG/ML VIAL 5 MG IV PUSH ×4 (08:31→09:03)
[2023-09-19] MEDS: fentaNYL CITRATE INJ (*CRX) 100 MCG/2 ML VIAL 25 MCG IV PUSH ×2 (09:01→09:10)
[2023-09-19] MEDS: oxyCODONE HCL (*CRX) 5 MG TAB IR PO (10:17)
[2023-09-19] MEDS: ONDANSETRON INJ 4 MG/2 ML VIAL IV PUSH (11:24)
[2023-09-19] MEDS: ACETAMINOPHEN 325 MG TABLET 650 MG PO (12:07)
== END 2023-09-19 12:25 | disposition home or self-care (01) ==
PROVIDERS: PCP Family Medicine; Visit Provider Surgery
PROC: 0FT44ZZ Resection of Gallbladder, Percutaneous Endoscopic Approach (ICD-10-PCS; CPT 47562; principal; 2023-09-19 07:30)
DX: K80.10 Calculus of gallbladder with chronic cholecystitis without obstruction (principal); I10 Essential (primary) hypertension; Z82.49 Family history of ischemic heart disease and other diseases of the circulatory system
CPT/HCPCS: 47562; 36415; 80076; 82150; 83690; 86850; 86900; 86901; 88304; A9270; J0360; J0690; J1100; J1885; J2250; J2405; J2704; J3010; J7030; J7120

== ENCOUNTER 2024-02-07 09:49 | Outpatient (CLI) | payer OTHER, SELFPAY ==
--- NOTE | ~2024-02-07 | US_ITS ---
US soft tissue abdomen 02/07/2024 10:04 Indication: Right lower abdomen pain Procedure: High-resolution ultrasound of the right lower abdomen Comparison: No prior studies for comparison. Findings: Normal heterogeneous soft tissues without discrete solid or cystic mass. No hernia identifi ed. Impression: 1: Normal ultrasound of the right lower abdomen. Reviewed, dictated and finalized at location A. Impression: 1: Normal ultrasound of the right lower abdomen.
== END 2024-02-07 09:50 ==
PROVIDERS: PCP Family Medicine; Visit Provider Nurse Practitioner Family
DX: R10.31 Right lower quadrant pain (principal)
CPT/HCPCS: 76705

== ENCOUNTER 2024-05-29 18:21 | Emergency (ER) | payer OTHER, SELFPAY ==
--- NOTE | ~2024-05-29 | XR_ITS ---
EXAMINATION: XR wrist RT min 3V DATE: 05/29/2024 18:50 INDICATION: Right wrist injury. TECHNIQUE: 3 views of right wrist were obtained. COMPARISON: None. FINDINGS: Bone alignment is normal. No fracture. There is mild osteoarthritis of first carpometacarpa l joint. IMPRESSION: 1. Mild osteoarthritis of first carpometacarpal joint. Reviewed, dictated and finalized at location E.
[2024-05-29 18:40] VITALS: BP 220/100; PULSE 65; RESP 18; TEMP 36.4; O2SAT 99
--- NOTE | 2024-05-29 19:48 | ED.UPPEXIN ---
HPI - Extremity Injury (Upper) General Chief Complaint: Extremity Injury, Upper Stated Complaint: right wrist injury Time Seen by Provider: 05/29/24 19:33 History of Present Illness HPI narrative: Patient presents here with right wrist injury, his right she had slipped and he had been tripped and landed on his right wrist, denies any injury anywhere. He does have a history of anxiety and hypertension is pretty anxious upon arrival here, had already taken some Tylenol at home. Related Data Home Medications Medication Instructions Recorded Confirmed All Purpose Multivitamin-Min 1 tab-cap PO DAILY 09/13/23 10/05/23 Allergies Allergy/AdvReac Type Severity Reaction Status Date / Time No Known Allergies Allergy Verified 01/27/24 16:12 Review of Systems Review of Systems: All systems reviewed & are unremarkable except as noted in HPI and below PMFSH Past Medical History Medical History Hypertension Kidney stones Surgical History Surgical History History of tonsillectomy (1969) Hx laparoscopic cholecystectomy Family History Family History Mother Family history of cardiovascular disease Heart disease Father Diabetes mellitus Sibling Liver disease Social History Social History Social History: Surrogate medical decision maker: Virgen Bain, spouse. Code status: Full code. Smoking status: Never smoker Second hand tobacco smoke exposure: No Alcohol intake: former Drinks per week: 2 Alcohol use details: Beer on the weekends. Substance use: never Lack of Transportation: No Lack of Food: Never True Current Housing: I Have Housing Concerned About Future Housing: No Difficulty Paying Gas/Electric Bills: No Difficulty Paying for Meds: No Currently Unemployed: No Education: Bachelor's Degree Difficulty w/ Childcare or Family Care: No Living arrangements: with family Additional living arrangements comments: Lives in [place] with spouse. 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 Gender identity (if verbalized by the patient): Male Sexual Orientation (if Verbalized by the Patient): Straight or Heterosexual Spiritual care concerns: No Exam Narrative: EXAMINATION OF ORGAN SYSTEMS/BODY AREAS: Constitutional: Vital signs per nursing GENERAL:[No acute distress, non-toxic appearing.] HEAD: Normal with no signs of head trauma. EYES: EOMI, conjunctiva normal ENT: Hearing grossly intact LUNGS: Nonlabored breathing. HEART: [Regular rate and rhythm] ABD: [Soft], [nontender to palpation] EXT: Normal range of motion; slight scaphoid tenderness SKIN: hematoma dorsal right wrist NEURO: [Alert and oriented x 3. No gross focal sensory or strength deficits.] PSYCH: Normal affect Course Vital Signs Vital signs: Vital Signs Temperature 97.6 F 05/29/24 18:40 Pulse Rate 65 05/29/24 18:40 Respiratory Rate 18 05/29/24 18:40 Blood Pressure 220/100 H 05/29/24 18:40 Pulse Oximetry 99 05/29/24 18:40 Oxygen Delivery Room Air 05/29/24 18:40 Temperature 97.6 F 05/29/24 18:40 Pulse Rate 65 05/29/24 18:40 Respiratory Rate 18 05/29/24 18:40 Blood Pressure 220/100 H 05/29/24 18:40 Pulse Oximetry 99 05/29/24 18:40 Oxygen Delivery Room Air 05/29/24 18:40 MDM - Extremity Injury (Upper) MDM Narrative Medical decision making narrative: patient presents after mechanical fall with right wrist injury, he is right-handed, denies injury anywhere else, he is quite hypertensive here however I did review the EMR in noticed that he has always been hypertensive and he is otherwise asymptomatic, No signs or symptoms of end organ dysfunction; no chest pain or shortness of breath, neurological deficits, severe
[2024-05-29 19:52] VITALS: BP 196/99; PULSE 67; RESP 20; O2SAT 99
--- NOTE | 2024-05-29 20:04 | PC.NURSE ---
Patient refuses splint. Notified EDP Dr. Carter who VRBO an luis angel wrap.
--- NOTE | 2024-05-29 20:06 | PC.NURSE ---
Patient's new BP was 196/99. Patient states he is always hypertensive and is overdue for his nightly blood pressure medications. Notified EDP Dr. Carter who advised to discharge the patient and instruct him to take his medications as soon as possible.
== END 2024-05-29 20:15 | disposition home or self-care (01) ==
LOC: ANHED 19:56
PROVIDERS: Emergency Provider Emergency Medicine; PCP Family Medicine
DX: S60.211A Contusion of right wrist, initial encounter (principal); I10 Essential (primary) hypertension; F41.9 Anxiety disorder, unspecified; Z87.442 Personal history of urinary calculi; Z86.73 Personal history of transient ischemic attack (TIA), and cerebral infarction without residual deficits; Z90.49 Acquired absence of other specified parts of digestive tract; Z79.899 Other long term (current) drug therapy; W01.0XXA Fall on same level from slipping, tripping and stumbling without subsequent striking against object, initial encounter
CPT/HCPCS: 73110; 99283

== ENCOUNTER 2024-11-16 15:14 | Outpatient (CLI) | payer OTHER, SELFPAY ==
[2024-11-16 18:11] LABS: Alanine Aminotransferase 35 U/L (6-50); Albumin Level 4.4 g/dL (3.5-5.1); Alkaline Phosphatase 64 U/L (38-126); Anion Gap 4 mmol/L (4-12); Aspartate Amino Transferase 44 U/L (17-59); Bilirubin,Total 0.7 mg/dL (0.2-1.3); Blood Urea Nitrogen 21 mg/dL (9-20); Calcium 9.5 mg/dL (8.4-10.2); Carbon Dioxide 28 mmol/L (22-30); Chloride 101 mmol/L (98-107); Cholesterol 149 mg/dL (0-200); Estimated Glomerular Filt Rate 56; Glucose 90 mg/dL (65-110); HDL Direct 52 mg/dL; Potassium 4.8 mmol/L (3.4-5.0); Sodium 133 mmol/L (137-145); Triglycerides 98 mg/dL (<150)
[2024-11-16 18:22] LABS: LDL Cholesterol Direct 77 mg/dL
[2024-11-16 18:28] LABS: T4 Thyroxine 5.06 ug/dL (5.53-11.0)
[2024-11-17 06:23] LABS: Triiodothyronine T3 Free 3.4 pg/mL (2.3-4.2)
[2024-11-20 11:33] LABS: Testosterone Total 555 ng/dL (250-1100)
== END 2024-11-16 15:15 | disposition home or self-care (01) ==
LOC: ANHGOSHLAB 15:15
PROVIDERS: PCP Family Medicine; Visit Provider Family Medicine
DX: I16.1 Hypertensive emergency (principal); E06.3 Autoimmune thyroiditis; E78.5 Hyperlipidemia, unspecified
CPT/HCPCS: 36415; 80053; 80061; 84403; 84436; 84443; 84481

== ENCOUNTER 2025-02-08 16:04 | Outpatient (CLI) | payer OTHER, SELFPAY ==
--- OUTSIDE RECORDS SUMMARY | 2025-02-08 16:06 | XMS_ITS | Referral Summary ---
Author Organization [facility] [address] Address [address] [place] [address] Care Team Providers Care Evaluation Assistant Name Role Phone Be Edwards MD Primary Care Provider [phone] [phone] Allergies No known active allergies Medications multivitamin with minerals tablet Take 1 tablet by mouth daily (pt. uses Shaklee brand) Active cholecalciferol (Vitamin D3) 5,000 unit tablet Take 1 tablet (5,000 Units total) by mouth daily Active melatonin tablet Take 1 tablet (3 mg total) by mouth nightly Active Lactobacillus rhamnosus GG 5 billion cell powder in packet Take 1 packet by mouth every evening Active lisinopriL (PRINIVIL,ZESTR IL) 10 mg tablet Take 1 tablet (10 mg total) by mouth every evening 05/17/2023 Active clopidogreL (PLAVIX) 75 mg tablet Take 1 tablet (75 mg total) by mouth every evening Active losartan (COZAAR) 50 mg tablet Take 1 tablet (50 mg total) by mouth every evening Active hydrOXYzine (ATARAX) 25 mg tabletIndicatio ns:anxiety Take 1 tablet (25 mg total) by mouth 3 (three) times a day as needed for itching 12 tablet 07/10/2023 Active acetaminophen (TYLENOL) 500 mg tablet Take 1 tablet (500 mg total) by mouth every 6 (six) hours as needed for pain Active naproxen (ALEVE) 220 mg tablet Take 1 tablet (220 mg total) by mouth 2 (two) times a day with meals Active Active Problems Problem Noted Date Diagnosed Date Chronic cholecystitis 09/11/2023 Acute CVA (cerebrovascular accident) 04/26/2023 Essential hypertension 04/26/2023 Silent micro-hemorrhage of brain 04/26/2023 Cerebrovascular accident (CV A) due to occlusion of precerebral artery Assessment & Plan (07/13/2023 7:45 AM CDT): Mr. Bain presents today following hospitalization for an acute CVA in the left temporal region. He notes that he has made a wonderful recovery post CVA. He has stopped taking his antiplatelet therapy and statin. He has been doing his therapy at home. 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 He did present to the hospital following his initial event with symptoms of evolution/extension of his original stroke. He has made some positive lifestyle modifications. He exercises on a regular basis and has been consuming a vegan diet. Risk factors for stroke: HTN, HLD, weight, age, gender. Plan: Stroke protocol and precautions reviewed in depth. Emphasized the importance of remaining on his statin therapy, low-dose statin prescribed Emphasized the importance of him remaining on anti-platelet therapy, he should resume Plavix 75 mg daily for stroke and cardiac protection. Emphasized the importance of calling 911 at symptom onset Regular exercise at least 4 days per week for 30 minutes at a time focusing on cardiovascular health She would follow a well-balanced diet focusing on lean meats and vegetables. Return precautions reviewed Follow-up 4-6 months Abdominal pain Resolved Problems Problem Noted Date Diagnosed Date Resolved Date AMS (altered mental status) 04/25/2023 04/26/2023 Right sided weakness 03/22/2023 023 Social History Tobacco Use Types Packs/Day Years Used Date Smoking Tobacco: Never Smokeless Tobacco: Never Tobacco Cessation:Counseling Given: Not Answered Social Connection and Isolat ion Panel [NHANES] Answer Date Recorded In a typical week, how many times do you talk on the phone with family, friends, or neighbors? More than three times a week 2023 How often do you get togethe r with friends or relatives? More than three times a week 2023 How often do you attend [facility] or druze services? More than 4 times per year 2023 Do you belong to any clubs o r organizations such as mormonism groups, unions, fraternal or athletic groups, or school groups? Yes 2023 How often do you attend meet ings of the clubs or organizations you belong to? More than 4 times per year 2023 Are you , , di vorced, , never , or living with a partner? 2023 AUDIT-C Answer Date Recorded Q1: How often do you have a drink containing alc ohol? Monthly or less 06/02/2023 Q2: How many drinks containi ng alcohol do you have on a typical day when you are drinking? 1 or 2 06/02/2023 Frequency of Binge Drinking Not on file 05/21 Overall Financial Resource Strain (CARDIA) Answe r Date Recorded How hard is it for you to pa y for the very basics like food, housing, medical care, and heating? Not hard at all 2023 PRAPARE - Transportation Answer Date Re corded In the past 12 months, has l ack of transportation kept you from medical appointments or from getting medications? No 01/2023 In the past 12 months, has l ack of transportation kept you from meetings, work, or from getting things needed for daily living? No 2023 Personal Safety Answer Date Recorded Have you ever been in or are you currently in a harmful physical or emotional relationship or is someone making you feel afraid or unsafe? 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 Gender Identity Male 08/27/2023 3:38 PM CDT Sexual Orientation Choose not to disclose 2022 3:38 PM CDT Last Filed Vital Signs Vital Sign Reading Time Taken Comments Blood Pressure 175/103 07/10/2023 9:20 PM CDT Pulse 89 07/10/2023 9:20 PM CDT Temperature 36.9 C (98.5 F) 07/10/2023 5:54 PM CDT Respiratory Rate 14 09/08/2023 2:04 PM CDT Oxygen Saturation 99% 07/10/2023 9:20 PM CDT Inhaled Oxygen Concentration - - Weight 86.6 kg (190 lb 14.7 oz) 09/08/2023 2:04 PM CDT Height 177.8 cm (5' 10 ) 09/08/2023 2:04 PM CDT Body Mass Index 27.39 09/08/2023 2:04 PM CDT Plan of Treatment Not on file Insurance [facility] CHO[facility] PLUS [facility] CHOICE PLUS [facility] CHOICE PLUS Advance Directives For more information, please contact: [phone] * Full Code (Latest Code Status on File) Date Activated Date Inactivated Comments 04/25/2023 6:06 PM 04/27/2023 5:53 PM * Full Code Date Activated Date Inactivated Comments 03/22/2023 4:44 AM 2023 7:24 PM Care Teams Evaluation Assistant Relationship Specialty Start Date End Date Be Edwards MD PCP - General Family Medicine 03/19/23
--- OUTSIDE RECORDS SUMMARY | 2025-02-08 16:06 | XMS_ITS | Clinical Summary ---
Author Organization [facility] [address] Address [address] [place] [address] Care Team Providers Care Cytologist Name Role Phone Be Edwards MD Primary Care Provider [phone] [phone] Allergies No known active allergies Medications multivitamin [...] 04/25/2023 04/26/2023 Right sided weakness 03/22/2023 023 Medical History Medical History Date Comments HTN (hypertension) CVA (cerebral vascular accident) (HCC) 3 Social History Tobacco Use Types Packs/Day Years [...] week 2023 How often do you attend [facility] or adventism services? 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 Gender Identity Male 08/27/2023 3:38 PM CDT Sexual Orientation Choose not to disclose 2022 3:38 PM CDT Obstetrics History Last Filed Vital Signs Vital Sign Reading [...] 09/08/2023 2:04 PM CDT Plan of Treatment Health Maintenance Due Date Last Done Comments Colon Cancer Screening-Colonoscopy 1963 Depression Screening 1963 Hepatitis C Screening 1963 Prostate Cancer Screening-PSA 1963 DTaP/Tdap/Td Vaccine (1 - Tdap) 1974 Hepatitis B Screening 1981 Regular Well Visit/Exam 18-64 1981 Influenza Vaccine (#1) 2024 Zoster Vaccine Completed 01/29/2019, 08/19/2018 Pneumococcal vaccine <65 Aged Out No longer eligible based on patient's age to complete this topic Insurance [facility]US [facility] Address: [address] [address] [facility] CHOICE PLUS [place] [id number] [facility] PLUS [facility] Address: [address] [address] [place] [address] Advance Directives For more information, please contact: [phone] * Full Code (Latest Code Status on File) Date Activated Date Inactivated Comments 04/25/2023 6:06 PM 04/27/2023 5:53 PM * Full Code Date Activated Date Inactivated Comments 03/22/2023 4:44 AM 2023 7:24 PM Care Teams Cytologist Relationship Specialty Start Date End Date Be Edwards MD PCP - General Family Medicine 03/19/23
--- OUTSIDE RECORDS SUMMARY | 2025-02-08 16:06 | XMS_ITS | Clinical Summary ---
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 Name Role Phone Unavailable Primary Care Provider Unavailabl e Social History Tobacco Use Types Packs/Day Years Used Date Smoking Tobacco: Never Assessed Comments Unknown Sex and Gender Information Value Date Recorded Sex Assigned at Not on file Legal Sex Female 4:34 PM CDT Gender Identity Not on file Sexual Orientation Not on file Plan of Treatment Health Maintenance Due Date Last Done Comments Cervical Cancer Screening Pa p Smear (Age 30 to 64) Every 3 Years 1963 Colorectal Cancer Screening Colonoscopy (10 Years) 1963 Annual Physical 1966 Hepatitis C 1981 DTaP, Tdap and Td Vaccines ( 1 - Tdap) 1982 Cervical Cancer Screening Pa p with HPV Testing (Age 30 to 64) Every 5 Years 1993 Cervical Cancer Screening with HPV 1993 Mammogram Screening 2003 Zoster Vaccines (1 of 2) 2013 COVID-19 Vaccine (2023-2 5 season) 2024 Influenza Adult (#1) 2024 RSV Immunization or 60+ Years (1 - 1-dose 75+ series) 2038 Meningococcal B Vaccine Aged Out No l onger eligible based on patient's age to complete this topic Meningococcal Vaccine Aged Out No fabián annalee eligible based on patient's age to complete this topic Pneumococcal Vaccine: Pediat rics (0 to 5 Years) and At-Risk Patients (6 to 64 Years) Aged Out No longer eligible b ased on patient's age to complete this topic RSV Immunizations Under 20 Months Aged Out No longer eligible based on patient's age to complete this topic
[2025-02-08 18:09] LABS: Alanine Aminotransferase 28 U/L (6-50); Albumin Level 4.7 g/dL (3.5-5.1); Alkaline Phosphatase 80 U/L (38-126); Anion Gap 10 mmol/L (4-12); Aspartate Amino Transferase 69 U/L (17-59); Bilirubin,Total 1.1 mg/dL (0.2-1.3); Blood Urea Nitrogen 18 mg/dL (9-20); Calcium 9.6 mg/dL (8.4-10.2); Carbon Dioxide 30 mmol/L (22-30); Chloride 96 mmol/L (98-107); Cholesterol 143 mg/dL (0-200); Estimated Glomerular Filt Rate 55; Glucose 89 mg/dL (65-110); HDL Direct 45 mg/dL; Potassium 4.5 mmol/L (3.4-5.0); Sodium 136 mmol/L (137-145); Triglycerides 57 mg/dL (<150)
[2025-02-08 18:21] LABS: LDL Cholesterol Direct 76 mg/dL
[2025-02-08 18:33] LABS: T4 Thyroxine 7.58 ug/dL (5.53-11.0)
[2025-02-08 18:44] LABS: Thyroid Stimulating Hormone 0.332 uIU/mL (0.465-4.680)
== END 2025-02-08 16:05 | disposition home or self-care (01) ==
LOC: ANHGOSHLAB 16:04
PROVIDERS: PCP Family Medicine; Visit Provider Family Medicine
DX: I16.1 Hypertensive emergency (principal); E78.5 Hyperlipidemia, unspecified; E06.3 Autoimmune thyroiditis
CPT/HCPCS: 36415; 80053; 80061; 84403; 84436; 84443

== ENCOUNTER 2025-06-21 11:32 | Outpatient (CLI) | payer OTHER, SELFPAY ==
--- OUTSIDE RECORDS SUMMARY | 2025-06-21 11:35 | XMS_ITS | Referral Summary ---
Author Organization [facility] [address] Address [address] [place] [address] Care Team Providers Care Documentation Lead Name Role Phone Be Edwards MD Primary Care Provider [phone] [phone] Allergies No known active allergies Medications multivitamin [...] week 2023 How often do you attend [facility] or temple services? 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 Gender Identity Male 08/27/2023 3:38 PM CDT [...] 2:04 PM CDT Height 177.8 cm (5' 10) 09/08/2023 2:04 PM CDT Body Mass Index 27.39 09/08/2023 2:04 PM CDT Plan of Treatment Not on file Insurance [facility] CHO[facility] PLUS [facility] CHO[facility] PLUS [facility] CHO[facility] PLUS Advance Directives For more information, please contact: [phone] * Full Code (Latest Code Status on File) Date Activated Date Inactivated Comments 04/25/2023 6:06 PM 04/27/2023 5:53 PM * Full Code Date Activated Date Inactivated Comments 03/22/2023 4:44 AM 2023 7:24 PM Care Teams Documentation Lead Relationship Specialty Start Date End Date Be Edwards MD PCP - General Family Medicine 03/19/23
--- OUTSIDE RECORDS SUMMARY | 2025-06-21 11:35 | XMS_ITS | Clinical Summary ---
Author Organization [facility] [address] Address [address] [place] [address] Care Team Providers Care Contact Lens Fitter Name Role Phone Be Edwards MD Primary Care Provider [phone] [phone] Allergies No known active allergies Medications multivitamin [...] week 2023 How often do you attend [facility] or restorationism services? 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 Gender Identity Male 08/27/2023 3:38 PM CDT [...] Well Visit/Exam 18-64 1981 Influenza Vaccine (#1) 2025 Zoster Vaccine Completed 01/29/2019, 08/19/2018 Pneumococcal vaccine <65 Aged Out No longer eligible based on patient's age to complete this topic Insurance [facility] CHOICE PLUS [facility] CHOICE PLUS [place] [id number] [facility] CHOICE PLUS Advance Directives For more information, please contact: [phone] * Full Code (Latest Code Status on File) Date Activated Date Inactivated Comments 04/25/2023 6:06 PM 04/27/2023 5:53 PM * Full Code Date Activated Date Inactivated Comments 03/22/2023 4:44 AM 2023 7:24 PM Care Teams Contact Lens Fitter Relationship Specialty Start Date End Date Be Edwards MD PCP - General Family Medicine 03/19/23
--- OUTSIDE RECORDS SUMMARY | 2025-06-21 11:35 | XMS_ITS | Clinical Summary ---
Author Organization [facility] Address [address] [place] [id number] Care Team Providers Care Educational Institution Curator Name Role Phone Unavailable Primary Care Provider [...] Screening with HPV 1993 Mammogram Screening 2003 Pneumococcal Vaccine: 50+ Ye ars (1 of 1 - PCV) 2013 Zoster Vaccines (1 of 2) 2013 COVID-19 Vaccine ( - 2023-2 5 season) 2024 RSV Immunization or 60+ Years (1 [...]
[2025-06-21 15:15] LABS: Free T3 5.42 pg/mL (2.45-5.93)
[2025-06-21 15:31] LABS: Thyroid Stimulating Hormone 1.830 uIU/mL (0.465-4.680); Total Triiodothyronine (T3) 1.39 NG/ML (0.82-1.58)
== END 2025-06-21 11:33 | disposition home or self-care (01) ==
LOC: ANHGOSHLAB 11:32
PROVIDERS: PCP Family Medicine; Visit Provider Family Medicine
DX: E06.3 Autoimmune thyroiditis (principal); I16.1 Hypertensive emergency; E78.5 Hyperlipidemia, unspecified
CPT/HCPCS: 36415; 84436; 84443; 84480; 84481; 84482; 86376; 86800